=== PATIENT | female | born 1975 | race Caucasian/White ===

== ENCOUNTER 2020-08-27 16:56 | Inpatient (IN) | payer MEDICAID, OTHER ==
[~2020-08-27] VITALS: Ht 170.2 cm; Wt 61.4 kg
[2020-08-27] MEDS ORDERED: SODIUM CHLORIDE 0.9% 1,000 ML IV ONE ×3 (17:00→23:00)
[2020-08-27] MEDS ORDERED: NALOXONE HCL 0.4 MG/ML VIAL IV ONE (17:00)
[2020-08-27 19:05] LABS: Hemoglobin 12.6 g/dL (12.2-16.2); Mean Corpuscular Volume 104.8 fL (80.0-100.0)
[2020-08-27 19:06] LABS: Hematocrit 36.1 % (36.0-46.0); Mean Corpuscular Hemoglobin 36.5 pg (28.0-32.0); Mean Corpuscular Hgb Conc. 34.9 g/dL (32.0-36.0); Platelet Count (auto) 448 10^3/uL (140-450); Red Blood Cells 3.45 10^6/uL (4.0-5.20); Red Cell Distribution Width 15.7 % (11.8-14.3)
[2020-08-27 19:15] LABS: White Blood Cell 35.2 10^3/uL (4.4-10.8)
[2020-08-27 19:16] LABS: Basophils % (manual) 0 (0.0-2.0); Blast Cells 0; Eosinophils % (manual) 0 (0-7); Metamyelocytes % 0; Promyelocytes % 0; Reactive Lymphocytes 0
[2020-08-27 19:22] LABS: Albumin 3.8 g/dL (3.4-5.0); Anion Gap 25 (5-15); Calcium 11.5 mg/dL (8.5-10.1); Carbon Dioxide 11 mmol/L (21-32); Chloride 120 mmol/L (98-107); Glucose 175 mg/dL (74-106); Magnesium 3.8 mg/dL (1.6-2.6); Sodium 156 mmol/L (136-145)
[2020-08-27 19:24] LABS: Alanine Aminotransferase 45 U/L (13-56); Aspartate Aminotransferase 85 U/L (15-37); BUN/Creatinine Ratio 18.1; Blood Alcohol < 3.0 mg/dL (0-5); GFR African American 7 mL/min; GFR Non-African American 6 mL/min; Salicylate 4.7 mg/dL (2.8-20.0)
[2020-08-27 19:26] LABS: Acetaminophen < 2.0 ug/mL (10-30)
[2020-08-27 19:29] LABS: Alkaline Phosphatase 158 U/L (45-117); Bilirubin, Total 1.8 mg/dL (0.2-1.0); Creatine Kinase IFCC 238 U/L (26-192); Total Protein 9.4 g/dL (6.4-8.2)
[2020-08-27 19:29] LABS: Lactic Acid w/Reflex 2.8 mmol/L (0.4-2.0)
[2020-08-27] MEDS ORDERED: PIPERACILLIN-TAZOB 3.375GM 100 ML IV ONE (19:30)
[2020-08-27] MEDS ORDERED: VANCOMYCIN PER PHARMACY 0 MG IV SCH ×2 (19:30→21:15)
[2020-08-27 19:31] LABS: INR 1.14 (0.9-1.15); Partial Thromboplastin Time 22.1 sec (23.0-31.2)
[2020-08-27 19:33] LABS: Blood Urea Nitrogen 143 mg/dL (7-18)
[2020-08-27 19:40] LABS: Band Neutrophils % (manual) 20; Lymphocytes % (manual) 2 (10.0-50.0); Monocytes % (manual) 2 (0-12); Myelocytes % 1
[2020-08-27] MEDS ORDERED: POTASSIUM CHL 20MEQ/100ML 100 ML IV ONE ×2 (19:45→21:15)
[2020-08-27] MEDS ORDERED: VANCOMYCIN 1GM/250ML 250 ML IV ONE (20:00)
[2020-08-27 20:06] LABS: Urine Bacteria FEW /hpf (None Seen); Urine Blood 2+ /uL (Negative); Urine Hyaline Cast MOD /lpf (0 - 2); Urine Mucus FEW (None Seen); Urine Specific Gravity 1.024 (1.001-1.035); Urine WBC 154 /hpf (0 - 5)
[2020-08-27 20:29] LABS: Amphetamine Screen, Urine NEGATIVE (NEGATIVE); Barbiturate Scree,Urine NEGATIVE (NEGATIVE); Benzodiazephine Screen, Urine NEGATIVE (NEGATIVE); Cocaine Screen, Urine NEGATIVE (NEGATIVE); Opiate Scree,Urine NEGATIVE (NEGATIVE); Phencyclidine Screen, Urine NEGATIVE (NEGATIVE)
[2020-08-27 20:59] LABS: Cannabinoid Screen, Urine NEGATIVE (NEGATIVE)
[2020-08-27] MEDS ORDERED: SODIUM BICARBONATE 8.4 % INJ 50ML VIAL IV ONE (21:15)
[2020-08-27] MEDS ORDERED: LACTATED RINGER'S 1,000 ML IV ONE (21:15)
[2020-08-27] MEDS ORDERED: MORPHINE SULF INJ 2 MG/ML SYRINGE 1ML IV PRN (21:15)
[2020-08-27] MEDS ORDERED: ONDANSETRON HCL 4 MG/2 ML VIAL IV PRN (21:15)
[2020-08-27] MEDS ORDERED: SOD CHL 0.45% 1,000 ML IV SCH (21:15)
[2020-08-27] MEDS ORDERED: NITROGLYCERIN 0.4 MG SL TAB SL PRN (21:15)
[2020-08-27] MEDS ORDERED: PIPERACILLIN-TAZOB 2.25GM 50 ML IV SCH (22:00)
[2020-08-27] MEDS ORDERED: SODIUM BICARBONATE 8.4% INJ 50ML SYRINGE ONE (22:12)
[2020-08-28] VITALS (35 sets, daily range): BP systolic 79–117; BP diastolic 48–72
[2020-08-28] MEDS: LACTULOSE 20Gm/30ML SOLN PO SCH ×3 (01:00→23:36)
[2020-08-28] MEDS ORDERED: PIPERACILLIN-TAZOB 2.25GM 50 ML IV SCH (06:00)
[2020-08-28 08:23] LABS: Albumin 2.6 g/dL (3.4-5.0); BUN/Creatinine Ratio 21.2; Calcium 8.6 mg/dL (8.5-10.1)
[2020-08-28 08:26] LABS: Total Protein 6.6 g/dL (6.4-8.2)
[2020-08-28 08:29] LABS: Potassium 2.4 mmol/L (3.5-5.1)
[2020-08-28] MEDS ORDERED: SODIUM BICARBONATE 8.4 % INJ 50ML VIAL IV ONE (08:30)
[2020-08-28] MEDS ORDERED: SODIUM BICARBONATE 50ML VIAL 50 ML in SOD CHL 0.45% 1,000 ML IV SCH (08:30)
[2020-08-28 09:07] LABS: Platelet Count (auto) 273 10^3/uL (140-450)
[2020-08-28 09:10] LABS: Hematocrit 27.1 % (36.0-46.0); Hemoglobin 9.1 g/dL (12.2-16.2); Mean Corpuscular Hemoglobin 36.3 pg (28.0-32.0); Mean Corpuscular Hgb Conc. 33.6 g/dL (32.0-36.0); Red Blood Cells 2.51 10^6/uL (4.0-5.20); White Blood Cell 28.2 10^3/uL (4.4-10.8)
[2020-08-28 09:11] LABS: Phosphorus 3.5 mg/dL (2.5-4.90); Uric Acid 23.9 mg/dL (2.6-6.0)
[2020-08-28] MEDS ORDERED: NOREPINEPHRINE 8 MG/250ML KIT 250 ML IV ONE (09:11)
[2020-08-28 09:14] LABS: Basophils % (manual) 0 (0.0-2.0); Blast Cells 0; Eosinophils % (manual) 0 (0-7); Lymphocytes % (manual) 0 (10.0-50.0); Metamyelocytes % 0; Promyelocytes % 0; Reactive Lymphocytes 0
[2020-08-28] MEDS: NOREPINEPHRINE 8 MG/250ML KIT 250 ML IV SCH (09:20)
[2020-08-28 10:33] LABS: Band Neutrophils % (manual) 6; Monocytes % (manual) 2 (0-12); Myelocytes % 2
[2020-08-28] MEDS: LINEZOLID 600MG/300ML 300 ML IV SCH ×2 (10:40→22:48)
[2020-08-28] MEDS: PANTOPRAZOLE 40 MG/10 ML VIAL INJ IV SCH (10:40)
[2020-08-28] MEDS ORDERED: SODIUM CHL 0.9% 1000 ML BAG XX ONE (11:15)
[2020-08-28] MEDS: POTASSIUM CHL 20MEQ/100ML 100 ML IV SCH ×2 (12:00→13:15)
[2020-08-28] MEDS ORDERED: MEROPENEM 500MG IVPB 50 ML IV SCH (12:00)
[2020-08-28] MEDS ORDERED: FOLIC ACID 1 MG, MULTIPLE VITAMIN 10 ML, MAGNESIUM SULF SDV 50% 8 MEQ, THIAMINE INJ 100... INJ SCH ×5 (12:00)
[2020-08-28] MEDS ORDERED: THIAMINE 100mg/ml INJ (200mg/2ml VIAL) IV ONE (12:30)
[2020-08-28] MEDS ORDERED: ALBUMIN 25% 100 ML IV ONE (16:15)
[2020-08-28 22:54] LABS: BUN/Creatinine Ratio 16.2; Calcium 7.9 mg/dL (8.5-10.1)
[2020-08-28 22:58] LABS: Potassium 2.3 mmol/L (3.5-5.1)
[2020-08-29] VITALS (94 sets, daily range): BP systolic 82–120; BP diastolic 36–77
[2020-08-29] MEDS: POTASSIUM CHL 20MEQ/100ML 100 ML IV SCH ×7 (00:41→22:07)
[2020-08-29] MEDS: chlordiazePOXIDE HCL 25 MG CAP PO PRN ×3 (00:41→17:05)
[2020-08-29] MEDS: NOREPINEPHRINE 8 MG/250ML KIT 250 ML IV SCH ×2 (03:40→17:03)
[2020-08-29 04:49] LABS: Protein, Urine 214.9 mg/dL (0.0-11.9)
[2020-08-29 07:19] LABS: Hemoglobin 8.3 g/dL (12.2-16.2); Platelet Count (auto) 192 10^3/uL (140-450); White Blood Cell 25.6 10^3/uL (4.4-10.8)
[2020-08-29 07:22] LABS: Mean Corpuscular Hemoglobin 36.7 pg (28.0-32.0); Mean Corpuscular Hgb Conc. 34.6 g/dL (32.0-36.0); Mean Corpuscular Volume 106.2 fL (80.0-100.0); Red Blood Cells 2.26 10^6/uL (4.0-5.20); Red Cell Distribution Width 15.8 % (11.8-14.3)
[2020-08-29 07:28] LABS: Basophils % (manual) 0 (0.0-2.0); Blast Cells 0; Metamyelocytes % 0; Monocytes % (manual) 0 (0-12); Myelocytes % 0; Promyelocytes % 0; Reactive Lymphocytes 0
[2020-08-29 07:48] LABS: Albumin 2.9 g/dL (3.4-5.0); BUN/Creatinine Ratio 20.8; Bilirubin, Total 2.6 mg/dL (0.2-1.0); Calcium 7.9 mg/dL (8.5-10.1); Magnesium 2.2 mg/dL (1.6-2.6); Total Protein 6.1 g/dL (6.4-8.2)
[2020-08-29 07:56] LABS: Band Neutrophils % (manual) 3; Eosinophils % (manual) 3 (0-7); Lymphocytes % (manual) 7 (10.0-50.0)
[2020-08-29 07:57] LABS: Phosphorus 0.8 mg/dL (2.5-4.90); Potassium 2.5 mmol/L (3.5-5.1)
[2020-08-29] MEDS ORDERED: POTASSIUM PHOSPHATE 44 MEQ in D5W 5% 250 ML IV ONE (08:30)
[2020-08-29] MEDS: THIAMINE 100mg/ml INJ (200mg/2ml VIAL) IV SCH (08:59)
[2020-08-29] MEDS: LACTULOSE 20Gm/30ML SOLN PO SCH ×2 (08:59→22:09)
[2020-08-29] MEDS: PANTOPRAZOLE 40 MG/10 ML VIAL INJ IV SCH (08:59)
[2020-08-29] MEDS: LINEZOLID 600MG/300ML 300 ML IV SCH ×2 (08:59→22:08)
[2020-08-29 12:13] LABS: BUN/Creatinine Ratio 22.3; Calcium 8.2 mg/dL (8.5-10.1)
[2020-08-29 12:16] LABS: Potassium 2.6 mmol/L (3.5-5.1)
[2020-08-29] MEDS: MAGNESIUM SULFATE 1GM/100ML 100 ML IV SCH ×2 (13:17→14:18)
[2020-08-29] MEDS: FOLIC ACID 1 MG, MULTIPLE VITAMIN 10 ML, MAGNESIUM SULF SDV 50% 8 MEQ, THIAMINE INJ 100... INJ SCH ×5 (15:06)
[2020-08-29] MEDS: MEROPENEM 1GM IVPB 100 ML IV SCH (15:44)
[2020-08-29] MEDS: VASOPRESSIN 50 UNITS in D5W 5% 247.5 ML IV SCH (16:15)
[2020-08-30] VITALS (94 sets, daily range): BP systolic 95–125; BP diastolic 43–87
[2020-08-30] MEDS: MEROPENEM 1GM IVPB 100 ML IV SCH ×3 (01:00→20:00)
[2020-08-30 01:18] LABS: % Iron Saturation 31.5 % (15-50)
[2020-08-30 01:25] LABS: Folate (Folic Acid) > 24.00 ng/mL (5.38-24)
[2020-08-30] MEDS: POTASSIUM CHL 20MEQ/100ML 100 ML IV SCH ×4 (02:30→17:49)
[2020-08-30 06:15] LABS: Hemoglobin 8.2 g/dL (12.2-16.2); Red Cell Distribution Width 15.8 % (11.8-14.3)
[2020-08-30 06:18] LABS: Hematocrit 23.5 % (36.0-46.0); Mean Corpuscular Hemoglobin 36.7 pg (28.0-32.0); Mean Corpuscular Hgb Conc. 34.8 g/dL (32.0-36.0); Mean Corpuscular Volume 105.3 fL (80.0-100.0); Platelet Count (auto) 134 10^3/uL (140-450); Red Blood Cells 2.23 10^6/uL (4.0-5.20); White Blood Cell 19.5 10^3/uL (4.4-10.8)
[2020-08-30 06:29] LABS: Basophils % (manual) 0 (0.0-2.0); Blast Cells 0; Metamyelocytes % 0; Myelocytes % 0; Promyelocytes % 0; Reactive Lymphocytes 0
[2020-08-30 06:33] LABS: Albumin 2.5 g/dL (3.4-5.0); Calcium 8.3 mg/dL (8.5-10.1); Potassium 3.2 mmol/L (3.5-5.1)
[2020-08-30 06:39] LABS: Bilirubin, Total 1.6 mg/dL (0.2-1.0); Total Protein 5.7 g/dL (6.4-8.2)
[2020-08-30 07:08] LABS: Free T4 (Free Thyroxine) 1.02 ng/dL (0.89-1.76)
[2020-08-30 07:09] LABS: Folate (Folic Acid) > 24.00 ng/mL (5.38-24)
[2020-08-30 07:34] LABS: Band Neutrophils % (manual) 2; Eosinophils % (manual) 5 (0-7); Lymphocytes % (manual) 8 (10.0-50.0); Monocytes % (manual) 2 (0-12)
[2020-08-30] MEDS ORDERED: POTASSIUM PHOSPHATE 44 MEQ in D5W 5% 250 ML IV ONE (09:00)
[2020-08-30 09:10] LABS: Magnesium 2.8 mg/dL (1.6-2.6); Phosphorus 1.9 mg/dL (2.5-4.90)
[2020-08-30] MEDS: LACTULOSE 20Gm/30ML SOLN PO SCH ×2 (09:58→22:01)
[2020-08-30] MEDS: PANTOPRAZOLE 40 MG/10 ML VIAL INJ IV SCH (09:58)
[2020-08-30] MEDS: THIAMINE 100mg/ml INJ (200mg/2ml VIAL) IV SCH (09:58)
[2020-08-30] MEDS: LINEZOLID 600MG/300ML 300 ML IV SCH ×2 (09:58→22:00)
[2020-08-30] MEDS: LORazepam 2MG/ML-1ML VIAL IV PRN ×4 (10:35→23:30)
[2020-08-30] MEDS: chlordiazePOXIDE HCL 25 MG CAP PO SCH ×2 (12:08→17:27)
[2020-08-30] MEDS: FOLIC ACID 1 MG, MULTIPLE VITAMIN 10 ML, MAGNESIUM SULF SDV 50% 8 MEQ, THIAMINE INJ 100... INJ SCH ×5 (12:08)
[2020-08-30 14:50] LABS: Hepatitis A Ab IgM Negative; Hepatitis B Core IgM Negative; Hepatitis B Surface Antigen Negative (Negative); Hepatitis C Antibody Negative (Negative)
[2020-08-30 15:10] LABS: Hepatitis A Ab IgM Negative; Hepatitis B Core IgM Negative; Hepatitis B Surface Antigen Negative (Negative); Hepatitis C Antibody Negative (Negative)
[2020-08-30] MEDS: VASOPRESSIN 50 UNITS in D5W 5% 247.5 ML IV SCH (15:35)
[2020-08-30] MEDS: FOLIC ACID 1 MG, MULTIPLE VITAMIN 10 ML, THIAMINE INJ 100 MG in D5W 5% 1,000 ML INJ SCH (16:26)
[2020-08-31] VITALS (95 sets, daily range): BP systolic 92–139; BP diastolic 42–95
[2020-08-31] MEDS: chlordiazePOXIDE HCL 25 MG CAP PO SCH ×5 (00:08→23:57)
[2020-08-31] MEDS: NOREPINEPHRINE 8 MG/250ML KIT 250 ML IV SCH (00:10)
[2020-08-31] MEDS: MEROPENEM 1GM IVPB 100 ML IV SCH ×3 (04:00→20:00)
[2020-08-31] MEDS: LORazepam 2MG/ML-1ML VIAL IV PRN ×3 (04:30→20:30)
[2020-08-31 05:46] LABS: Potassium 3.4 mmol/L (3.5-5.1)
[2020-08-31 05:53] LABS: Albumin 2.3 g/dL (3.4-5.0); Total Protein 5.7 g/dL (6.4-8.2)
[2020-08-31] MEDS ORDERED: POTASSIUM PHOSPHATE 44 MEQ in D5W 5% 250 ML IV ONE (08:45)
[2020-08-31] MEDS: LINEZOLID 600MG/300ML 300 ML IV SCH ×2 (09:58→22:00)
[2020-08-31] MEDS: THIAMINE 100mg/ml INJ (200mg/2ml VIAL) IV SCH (09:58)
[2020-08-31] MEDS: PANTOPRAZOLE 40 MG/10 ML VIAL INJ IV SCH (09:58)
[2020-08-31] MEDS: LACTULOSE 20Gm/30ML SOLN PO SCH ×2 (09:59→21:51)
[2020-08-31] MEDS: FOLIC ACID 1 MG, MULTIPLE VITAMIN 10 ML, THIAMINE INJ 100 MG in D5W 5% 1,000 ML INJ SCH (12:00)
[2020-08-31] MEDS: VASOPRESSIN 50 UNITS in D5W 5% 247.5 ML IV SCH (16:15)
[2020-08-31] MEDS ORDERED: PPN PER PHARMACY 0 ML IV SCH (18:15)
[2020-08-31] MEDS ORDERED: CLINIMIX PER PHARMACY 0 ML IV SCH (18:15)
[2020-08-31] MEDS ORDERED: AMINO ACID INFUSION IN D10W 1,000 ML IV NR (20:00)
[2020-08-31] MEDS: ESOMEPRAZOLE 40 MG/5ml VIAL INJ IV SCH (21:50)
[2020-08-31] MEDS: ACCU-CHEK COMFORT CURVE STRIP VI SCH (23:57)
[2020-08-31] MEDS: InsuLIN REG 1unit/0.01ml Soln (100units/ml) SC SCH (23:58)
[2020-09-01] VITALS (88 sets, daily range): BP systolic 91–136; BP diastolic 53–95
[2020-09-01] MEDS ORDERED: DEXTROSE (50%) 50ML SYRG IV SCH
[2020-09-01] MEDS: MEROPENEM 1GM IVPB 100 ML IV SCH ×3 (04:00→20:09)
[2020-09-01 04:24] LABS: Basophils # (auto) 0 10 ^3/uL (0-0.2); Basophils % (auto) 0.4 % (0.0-2.0); Eosinophils # (auto) 0.4 10 ^3/uL (0-0.8); Hematocrit 26.4 % (36.0-46.0); Hemoglobin 9.1 g/dL (12.2-16.2); Lymphocytes % (auto) 9.3 % (10.0-50.0); Mean Corpuscular Hemoglobin 36.5 pg (28.0-32.0); Mean Corpuscular Hgb Conc. 34.3 g/dL (32.0-36.0); Mean Corpuscular Volume 106.5 fL (80.0-100.0); Monocytes # (auto) 0.6 10 ^3/uL (0-1.3); Monocytes % (auto) 5.5 % (0.0-12.0); Neutrophils # (auto) 8.8 10 ^3/uL (1.6-8.6); Neutrophils % (auto) 80.8 % (37.0-80.0); Nucleated Red Blood Cells % 0.1 %; Platelet Count (auto) 110 10^3/uL (140-450); Red Blood Cells 2.48 10^6/uL (4.0-5.20); White Blood Cell 10.9 10^3/uL (4.4-10.8)
[2020-09-01 04:55] LABS: Albumin 2.3 g/dL (3.4-5.0); Calcium 7.4 mg/dL (8.5-10.1); Magnesium 1.5 mg/dL (1.6-2.6)
[2020-09-01 04:57] LABS: BUN/Creatinine Ratio 27.6
[2020-09-01 05:00] LABS: Bilirubin, Total 0.9 mg/dL (0.2-1.0); Phosphorus 2.8 mg/dL (2.5-4.90); Total Protein 5.8 g/dL (6.4-8.2)
[2020-09-01 05:10] LABS: Potassium 2.9 mmol/L (3.5-5.1)
[2020-09-01] MEDS: LORazepam 2MG/ML-1ML VIAL IV PRN ×4 (05:30→16:38)
[2020-09-01] MEDS: ACCU-CHEK COMFORT CURVE STRIP VI SCH ×3 (05:47→18:25)
[2020-09-01] MEDS: chlordiazePOXIDE HCL 25 MG CAP PO SCH ×3 (05:47→18:39)
[2020-09-01] MEDS: POTASSIUM CHL 20MEQ/100ML 100 ML IV SCH ×3 (05:48→09:01)
[2020-09-01] MEDS: InsuLIN REG 1unit/0.01ml Soln (100units/ml) SC SCH ×3 (05:54→18:39)
[2020-09-01] MEDS: NOREPINEPHRINE 8 MG/250ML KIT 250 ML IV SCH ×2 (09:45→15:07)
[2020-09-01] MEDS: THIAMINE 100mg/ml INJ (200mg/2ml VIAL) IV SCH (10:08)
[2020-09-01] MEDS: LINEZOLID 600MG/300ML 300 ML IV SCH ×2 (10:09→22:06)
[2020-09-01] MEDS: LACTULOSE 20Gm/30ML SOLN PO SCH ×2 (10:09→22:06)
[2020-09-01] MEDS: ESOMEPRAZOLE 40 MG/5ml VIAL INJ IV SCH ×2 (10:09→22:07)
[2020-09-01] MEDS: FOLIC ACID 1 MG, MULTIPLE VITAMIN 10 ML, THIAMINE INJ 100 MG in D5W 5% 1,000 ML INJ SCH (12:00)
[2020-09-01] MEDS: MAGNESIUM SULFATE 1GM/100ML 100 ML IV SCH ×2 (12:15→15:20)
[2020-09-01] MEDS: ACETYLCYSTEINE 10 %(100MG/ML) SOL 4ML NEB SCH ×3 (14:00→22:24)
[2020-09-01] MEDS: LEVALBUTEROL HCL 1.25 MG/3 ML NEB NEB PRN ×3 (14:00→22:23)
[2020-09-01] MEDS ORDERED: POTASSIUM PHOSPHATE 44 MEQ in D5W 5% 250 ML IV ONE (14:00)
[2020-09-01] MEDS ORDERED: IOHEXOL 350 MG/ML 100ML IJ ONE (14:26)
[2020-09-01] MEDS: VASOPRESSIN 50 UNITS in D5W 5% 247.5 ML IV SCH (15:51)
[2020-09-01] MEDS ORDERED: ENOXAPARIN SOD 60 MG/0.6 ML SYRINGE SC ONE ×2 (16:15→16:45)
[2020-09-01] MEDS ORDERED: ENOXAPARIN SOD 60 MG/0.6 ML SYRINGE SC SCH (16:25)
[2020-09-01] MEDS ORDERED: MAGNESIUM SULFATE 1GM/100ML 100 ML IV ONE (18:00)
[2020-09-01] MEDS: AMINO ACID INFUSION IN D10W 1,000 ML IV NR (20:00)
[2020-09-01] MEDS: ENOXAPARIN SOD 60 MG/0.6 ML SYRINGE SC SCH (22:06)
[2020-09-02] VITALS (73 sets, daily range): BP systolic 80–129; BP diastolic 46–83
[2020-09-02] MEDS: LORazepam 2MG/ML-1ML VIAL IV PRN ×2 (00:06→11:36)
[2020-09-02] MEDS: LEVALBUTEROL HCL 1.25 MG/3 ML NEB NEB PRN ×5 (02:52→22:26)
[2020-09-02] MEDS: ACETYLCYSTEINE 10 %(100MG/ML) SOL 4ML NEB SCH ×6 (02:52→22:26)
[2020-09-02] MEDS: MEROPENEM 1GM IVPB 100 ML IV SCH ×3 (04:00→20:26)
[2020-09-02] MEDS: chlordiazePOXIDE HCL 25 MG CAP PO SCH ×5 (06:00→23:35)
[2020-09-02] MEDS: ACCU-CHEK COMFORT CURVE STRIP VI SCH ×5 (06:00→23:11)
[2020-09-02] MEDS: InsuLIN REG 1unit/0.01ml Soln (100units/ml) SC SCH ×5 (06:00→23:11)
[2020-09-02 06:24] LABS: Eosinophils # (auto) 0.2 10 ^3/uL (0-0.8); Monocytes # (auto) 0.5 10 ^3/uL (0-1.3); Nucleated Red Blood Cells % 0.1 %; White Blood Cell 17.6 10^3/uL (4.4-10.8)
[2020-09-02 06:26] LABS: Basophils # (auto) 0.1 10 ^3/uL (0-0.2); Basophils % (auto) 0.3 % (0.0-2.0); Eosinophils % (auto) 1.2 % (0.0-7.0); Hematocrit 24.8 % (36.0-46.0); Hemoglobin 8.5 g/dL (12.2-16.2); Lymphocytes # (auto) 0.5 10 ^3/uL (0.4-5.4); Lymphocytes % (auto) 3.1 % (10.0-50.0); Mean Corpuscular Hemoglobin 36.6 pg (28.0-32.0); Mean Corpuscular Hgb Conc. 34.2 g/dL (32.0-36.0); Monocytes % (auto) 3.1 % (0.0-12.0); Neutrophils # (auto) 16.3 10 ^3/uL (1.6-8.6); Neutrophils % (auto) 92.3 % (37.0-80.0); Platelet Count (auto) 101 10^3/uL (140-450); Red Blood Cells 2.31 10^6/uL (4.0-5.20); Red Cell Distribution Width 15.9 % (11.8-14.3)
[2020-09-02 06:46] LABS: Albumin 2.1 g/dL (3.4-5.0); Calcium 7.8 mg/dL (8.5-10.1); Magnesium 1.5 mg/dL (1.6-2.6); Potassium 3.4 mmol/L (3.5-5.1)
[2020-09-02 06:49] LABS: Bilirubin, Total 0.7 mg/dL (0.2-1.0); Phosphorus 2.1 mg/dL (2.5-4.90); Total Protein 5.5 g/dL (6.4-8.2)
[2020-09-02] MEDS: ESOMEPRAZOLE 40 MG/5ml VIAL INJ IV SCH ×2 (10:26→22:13)
[2020-09-02] MEDS: THIAMINE 100mg/ml INJ (200mg/2ml VIAL) IV SCH (10:26)
[2020-09-02] MEDS: ENOXAPARIN SOD 60 MG/0.6 ML SYRINGE SC SCH ×2 (10:26→22:14)
[2020-09-02] MEDS: LACTULOSE 20Gm/30ML SOLN PO SCH ×2 (10:26→22:14)
[2020-09-02] MEDS: LINEZOLID 600MG/300ML 300 ML IV SCH ×2 (10:26→22:14)
[2020-09-02] MEDS: MAGNESIUM SULFATE 1GM/100ML 100 ML IV SCH ×2 (10:42→11:36)
[2020-09-02] MEDS ORDERED: ROCURONIUM 10MG/ML 10ML VIAL IV ONE (11:56)
[2020-09-02] MEDS ORDERED: ETOMIDATE (2MG/ML) 20ML VIAL IV ONE (11:56)
[2020-09-02] MEDS ORDERED: fentaNYL Drip 2500mCg/250mlNS 250 ML IV ONE (12:10)
[2020-09-02] MEDS ORDERED: MIDAZOLAM DRIP 50 mg/50mL 50 ML IV ONE (12:11)
[2020-09-02] MEDS: MIDAZOLAM DRIP 50 mg/50mL 50 ML IV SCH (12:30)
[2020-09-02] MEDS: fentaNYL Drip 2500mCg/250mlNS 250 ML IV SCH (12:30)
[2020-09-02] MEDS ORDERED: POTASSIUM PHOSPHATE 44 MEQ in D5W 5% 250 ML IV ONE (13:00)
[2020-09-02] MEDS: PHENYLEPHRINE IV 250 ML IV SCH ×2 (13:50→19:55)
[2020-09-02] MEDS: FOLIC ACID 1 MG, MULTIPLE VITAMIN 10 ML, THIAMINE INJ 100 MG in D5W 5% 1,000 ML INJ SCH (14:40)
[2020-09-02] MEDS: VASOPRESSIN 50 UNITS in D5W 5% 247.5 ML IV SCH (16:15)
[2020-09-02] MEDS: AMINO ACID INFUSION IN D10W 1,000 ML IV NR (19:49)
[2020-09-02] MEDS ORDERED: AMINO ACID INFUSION IN D10W 2,000 ML IV NR (20:00)
[2020-09-03] VITALS (96 sets, daily range): BP systolic 61–203; BP diastolic 28–138
[2020-09-03] MEDS: LEVALBUTEROL HCL 1.25 MG/3 ML NEB NEB PRN ×6 (02:15→22:33)
[2020-09-03] MEDS: ACETYLCYSTEINE 10 %(100MG/ML) SOL 4ML NEB SCH ×6 (02:15→22:33)
[2020-09-03] MEDS: MEROPENEM 1GM IVPB 100 ML IV SCH ×3 (04:16→21:38)
[2020-09-03] MEDS: PHENYLEPHRINE IV 250 ML IV SCH (04:27)
[2020-09-03 04:32] LABS: Eosinophils # (auto) 0.2 10 ^3/uL (0-0.8); Hemoglobin 8.2 g/dL (12.2-16.2); Lymphocytes # (auto) 1.1 10 ^3/uL (0.4-5.4); Monocytes # (auto) 0.6 10 ^3/uL (0-1.3); Red Cell Distribution Width 16.2 % (11.8-14.3)
[2020-09-03 04:34] LABS: Basophils # (auto) 0.1 10 ^3/uL (0-0.2); Basophils % (auto) 0.4 % (0.0-2.0); Eosinophils % (auto) 1.1 % (0.0-7.0); Hematocrit 24.9 % (36.0-46.0); Lymphocytes % (auto) 6.2 % (10.0-50.0); Mean Corpuscular Hemoglobin 35.8 pg (28.0-32.0); Mean Corpuscular Hgb Conc. 32.9 g/dL (32.0-36.0); Mean Corpuscular Volume 108.8 fL (80.0-100.0); Monocytes % (auto) 3.3 % (0.0-12.0); Neutrophils # (auto) 15.9 10 ^3/uL (1.6-8.6); Platelet Count (auto) 128 10^3/uL (140-450); Red Blood Cells 2.29 10^6/uL (4.0-5.20); White Blood Cell 17.9 10^3/uL (4.4-10.8)
[2020-09-03] MEDS: MIDAZOLAM DRIP 50 mg/50mL 50 ML IV SCH ×2 (04:36→17:43)
[2020-09-03 04:52] LABS: Albumin 1.8 g/dL (3.4-5.0); Calcium 7.5 mg/dL (8.5-10.1); Magnesium 1.5 mg/dL (1.6-2.6); Potassium 3.4 mmol/L (3.5-5.1)
[2020-09-03 04:57] LABS: Bilirubin, Total 0.7 mg/dL (0.2-1.0); Phosphorus 2.6 mg/dL (2.5-4.90); Total Protein 5.4 g/dL (6.4-8.2)
[2020-09-03] MEDS: ACCU-CHEK COMFORT CURVE STRIP VI SCH ×3 (05:37→17:42)
[2020-09-03] MEDS: InsuLIN REG 1unit/0.01ml Soln (100units/ml) SC SCH ×3 (05:37→17:42)
[2020-09-03] MEDS: chlordiazePOXIDE HCL 25 MG CAP PO SCH ×4 (06:19→23:44)
[2020-09-03] MEDS: PHENYLEPHRINE INJ 40 MG in SODIUM CHL 0.9% 246 ML IV SCH ×3 (09:51→17:43)
[2020-09-03] MEDS ORDERED: NOREPINEPHRINE 8 MG/250ML KIT 250 ML IV ONE (10:26)
[2020-09-03] MEDS: NOREPINEPHRINE 8 MG/250ML KIT 250 ML IV SCH (10:30)
[2020-09-03] MEDS: ESOMEPRAZOLE 40 MG/5ml VIAL INJ IV SCH ×2 (10:30→22:32)
[2020-09-03] MEDS: THIAMINE 100mg/ml INJ (200mg/2ml VIAL) IV SCH (10:31)
[2020-09-03] MEDS: ENOXAPARIN SOD 60 MG/0.6 ML SYRINGE SC SCH ×2 (10:31→22:33)
[2020-09-03] MEDS: LACTULOSE 20Gm/30ML SOLN PO SCH ×2 (10:31→22:32)
[2020-09-03] MEDS: LINEZOLID 600MG/300ML 300 ML IV SCH ×2 (10:45→22:33)
[2020-09-03] MEDS: MAGNESIUM SULFATE 1GM/100ML 100 ML IV SCH ×2 (11:47→12:59)
[2020-09-03] MEDS: fentaNYL Drip 2500mCg/250mlNS 250 ML IV SCH (12:15)
[2020-09-03] MEDS ORDERED: POTASSIUM PHOSPHATE 44 MEQ in D5W 5% 250 ML IV ONE (13:00)
[2020-09-03] MEDS: FOLIC ACID 1 MG, MULTIPLE VITAMIN 10 ML, THIAMINE INJ 100 MG in D5W 5% 1,000 ML INJ SCH (14:45)
[2020-09-03] MEDS: VASOPRESSIN 50 UNITS in D5W 5% 247.5 ML IV SCH (16:15)
[2020-09-03] MEDS ORDERED: PHENYLEPHRINE HCL 10 MG/ML VL ONE (17:36)
[2020-09-03] MEDS ORDERED: PHENYLEPHRINE IV 250 ML IV ONE (17:36)
[2020-09-03] MEDS ORDERED: AMINO ACID INFUSION IN D10W 1,000 ML IV NR (20:00)
[2020-09-04] VITALS (105 sets, daily range): BP systolic 82–113; BP diastolic 48–76
[2020-09-04] MEDS: ACCU-CHEK COMFORT CURVE STRIP VI SCH ×4 (00:32→18:43)
[2020-09-04] MEDS: fentaNYL Drip 2500mCg/250mlNS 250 ML IV SCH (01:12)
[2020-09-04] MEDS: PHENYLEPHRINE INJ 40 MG in SODIUM CHL 0.9% 246 ML IV SCH ×3 (02:50→18:45)
[2020-09-04] MEDS: MEROPENEM 1GM IVPB 100 ML IV SCH ×3 (04:11→20:06)
[2020-09-04] MEDS: LEVALBUTEROL HCL 1.25 MG/3 ML NEB NEB PRN ×3 (05:47→22:41)
[2020-09-04] MEDS: ACETYLCYSTEINE 10 %(100MG/ML) SOL 4ML NEB SCH ×6 (05:48→22:41)
[2020-09-04] MEDS: InsuLIN REG 1unit/0.01ml Soln (100units/ml) SC SCH ×4 (06:00→18:00)
[2020-09-04] MEDS: MIDAZOLAM DRIP 50 mg/50mL 50 ML IV SCH ×2 (06:01→18:45)
[2020-09-04] MEDS: chlordiazePOXIDE HCL 25 MG CAP PO SCH ×3 (06:27→18:33)
[2020-09-04 07:29] LABS: Basophils # (auto) 0.1 10 ^3/uL (0-0.2); Lymphocytes # (auto) 1.4 10 ^3/uL (0.4-5.4); Mean Corpuscular Hemoglobin 35.9 pg (28.0-32.0); Monocytes # (auto) 0.5 10 ^3/uL (0-1.3); Neutrophils % (auto) 76.6 % (37.0-80.0); Red Blood Cells 2.49 10^6/uL (4.0-5.20)
[2020-09-04 07:31] LABS: Basophils % (auto) 0.8 % (0.0-2.0); Eosinophils # (auto) 0.4 10 ^3/uL (0-0.8); Eosinophils % (auto) 3.7 % (0.0-7.0); Hematocrit 27.1 % (36.0-46.0); Hemoglobin 8.9 g/dL (12.2-16.2); Lymphocytes % (auto) 13.9 % (10.0-50.0); Mean Corpuscular Hgb Conc. 32.9 g/dL (32.0-36.0); Mean Corpuscular Volume 108.9 fL (80.0-100.0); Neutrophils # (auto) 7.4 10 ^3/uL (1.6-8.6); Platelet Count (auto) 168 10^3/uL (140-450); Red Cell Distribution Width 16.2 % (11.8-14.3); White Blood Cell 9.7 10^3/uL (4.4-10.8)
[2020-09-04 07:45] LABS: Albumin 1.7 g/dL (3.4-5.0); Calcium 7.8 mg/dL (8.5-10.1); Magnesium 1.5 mg/dL (1.6-2.6)
[2020-09-04 07:52] LABS: BUN/Creatinine Ratio 28.6; Bilirubin, Total 0.6 mg/dL (0.2-1.0); Phosphorus 2.7 mg/dL (2.5-4.90); Pre Albumin 6.3 mg/dL (20.0-40.0); Total Protein 5.5 g/dL (6.4-8.2)
[2020-09-04] MEDS ORDERED: PHENYLEPHRINE HCL 10 MG/ML VL ONE (10:09)
[2020-09-04] MEDS ORDERED: PHENYLEPHRINE IV 250 ML IV ONE (10:10)
[2020-09-04] MEDS: LINEZOLID 600MG/300ML 300 ML IV SCH ×2 (10:13→22:14)
[2020-09-04] MEDS: THIAMINE 100mg/ml INJ (200mg/2ml VIAL) IV SCH (10:16)
[2020-09-04] MEDS: ESOMEPRAZOLE 40 MG/5ml VIAL INJ IV SCH ×2 (10:16→22:14)
[2020-09-04] MEDS: MAGNESIUM SULFATE 1GM/100ML 100 ML IV SCH ×2 (10:17→11:53)
[2020-09-04] MEDS: ENOXAPARIN SOD 60 MG/0.6 ML SYRINGE SC SCH ×2 (10:17→22:14)
[2020-09-04] MEDS: LACTULOSE 20Gm/30ML SOLN PO SCH ×2 (10:17→22:14)
[2020-09-04] MEDS: NOREPINEPHRINE 8 MG/250ML KIT 250 ML IV SCH (10:25)
[2020-09-04] MEDS: FOLIC ACID 1 MG, MULTIPLE VITAMIN 10 ML, THIAMINE INJ 100 MG, MAGNESIUM SULF SDV 50% 8 ... INJ SCH ×5 (11:54)
[2020-09-04] MEDS: VASOPRESSIN 50 UNITS in D5W 5% 247.5 ML IV SCH (16:15)
[2020-09-04] MEDS ORDERED: AMINO ACID INFUSION IN D10W 1,000 ML IV NR (20:00)
[2020-09-05] VITALS (99 sets, daily range): BP systolic 84–118; BP diastolic 45–91
[2020-09-05] MEDS: chlordiazePOXIDE HCL 25 MG CAP PO SCH ×4 (00:19→18:17)
[2020-09-05] MEDS: ACCU-CHEK COMFORT CURVE STRIP VI SCH ×4 (00:20→18:17)
[2020-09-05] MEDS: InsuLIN REG 1unit/0.01ml Soln (100units/ml) SC SCH ×4 (00:20→18:00)
[2020-09-05] MEDS: PHENYLEPHRINE INJ 40 MG in SODIUM CHL 0.9% 246 ML IV SCH ×3 (00:48→15:42)
[2020-09-05] MEDS: MIDAZOLAM DRIP 50 mg/50mL 50 ML IV SCH ×4 (02:15→23:21)
[2020-09-05] MEDS: ACETYLCYSTEINE 10 %(100MG/ML) SOL 4ML NEB SCH ×6 (02:46→22:13)
[2020-09-05] MEDS: LEVALBUTEROL HCL 1.25 MG/3 ML NEB NEB PRN ×6 (02:46→22:13)
[2020-09-05] MEDS: MEROPENEM 1GM IVPB 100 ML IV SCH (04:02)
[2020-09-05 04:26] LABS: Eosinophils # (auto) 0.2 10 ^3/uL (0-0.8); Hemoglobin 7.7 g/dL (12.2-16.2); Lymphocytes # (auto) 1.4 10 ^3/uL (0.4-5.4); Monocytes # (auto) 0.5 10 ^3/uL (0-1.3); Red Cell Distribution Width 16.1 % (11.8-14.3)
[2020-09-05 04:28] LABS: Basophils # (auto) 0.1 10 ^3/uL (0-0.2); Basophils % (auto) 0.8 % (0.0-2.0); Eosinophils % (auto) 2.2 % (0.0-7.0); Hematocrit 22.8 % (36.0-46.0); Lymphocytes % (auto) 15.1 % (10.0-50.0); Mean Corpuscular Hemoglobin 36.8 pg (28.0-32.0); Mean Corpuscular Hgb Conc. 33.8 g/dL (32.0-36.0); Mean Corpuscular Volume 108.8 fL (80.0-100.0); Monocytes % (auto) 5.4 % (0.0-12.0); Neutrophils % (auto) 76.5 % (37.0-80.0); Platelet Count (auto) 169 10^3/uL (140-450); Red Blood Cells 2.09 10^6/uL (4.0-5.20); White Blood Cell 9.1 10^3/uL (4.4-10.8)
[2020-09-05 04:42] LABS: Potassium 3.2 mmol/L (3.5-5.1)
[2020-09-05 04:49] LABS: Albumin 1.6 g/dL (3.4-5.0); BUN/Creatinine Ratio 33.3; Bilirubin, Total 1.6 mg/dL (0.2-1.0); Calcium 8.2 mg/dL (8.5-10.1); Magnesium 1.6 mg/dL (1.6-2.6); Total Protein 5.3 g/dL (6.4-8.2)
[2020-09-05] MEDS: fentaNYL Drip 2500mCg/250mlNS 250 ML IV SCH (06:39)
[2020-09-05] MEDS ORDERED: POTASSIUM PHOSPHATE 44 MEQ in D5W 5% 250 ML IV ONE (09:00)
[2020-09-05] MEDS: THIAMINE 100mg/ml INJ (200mg/2ml VIAL) IV SCH (09:47)
[2020-09-05] MEDS: ESOMEPRAZOLE 40 MG/5ml VIAL INJ IV SCH ×2 (09:47→21:45)
[2020-09-05] MEDS: LACTULOSE 20Gm/30ML SOLN PO SCH ×2 (09:47→21:46)
[2020-09-05] MEDS: LINEZOLID 600MG/300ML 300 ML IV SCH (09:47)
[2020-09-05] MEDS: ENOXAPARIN SOD 60 MG/0.6 ML SYRINGE SC SCH ×2 (09:47→21:46)
[2020-09-05] MEDS: NOREPINEPHRINE 8 MG/250ML KIT 250 ML IV SCH (09:48)
[2020-09-05] MEDS ORDERED: POTASSIUM CHL 20MEQ/100ML 100 ML IV SCH (10:15)
[2020-09-05] MEDS ORDERED: ceFAZolin 1GM/50ML 50 ML IV ONE (10:15)
[2020-09-05] MEDS: FOLIC ACID 1 MG, MULTIPLE VITAMIN 10 ML, THIAMINE INJ 100 MG, MAGNESIUM SULF SDV 50% 8 ... INJ SCH ×5 (12:21)
[2020-09-05] MEDS: PHENYLEPHRINE INJ 80 MG in SODIUM CHL 0.9% 242 ML IV SCH ×2 (15:15→21:30)
[2020-09-05] MEDS: VASOPRESSIN 50 UNITS in D5W 5% 247.5 ML IV SCH (16:15)
[2020-09-05] MEDS: POTASSIUM CHL 20MEQ/100ML 100 ML IV SCH ×2 (18:17→20:43)
[2020-09-05] MEDS: ceFAZolin 1GM/50ML 50 ML IV SCH (18:30)
[2020-09-05] MEDS ORDERED: AMINO ACID INFUSION IN D10W 1,000 ML IV NR (20:00)
[2020-09-06] VITALS (105 sets, daily range): BP systolic 90–118; BP diastolic 43–76
[2020-09-06] MEDS: ACCU-CHEK COMFORT CURVE STRIP VI SCH ×4 (00:26→18:00)
[2020-09-06] MEDS: chlordiazePOXIDE HCL 25 MG CAP PO SCH ×4 (00:26→18:45)
[2020-09-06] MEDS: ACETYLCYSTEINE 10 %(100MG/ML) SOL 4ML NEB SCH ×6 (02:06→22:15)
[2020-09-06] MEDS: LEVALBUTEROL HCL 1.25 MG/3 ML NEB NEB PRN ×6 (02:06→22:15)
[2020-09-06] MEDS: ceFAZolin 1GM/50ML 50 ML IV SCH ×3 (04:02→19:01)
[2020-09-06 04:16] LABS: Basophils # (auto) 0.1 10 ^3/uL (0-0.2); Basophils % (auto) 1.1 % (0.0-2.0); Eosinophils # (auto) 0.2 10 ^3/uL (0-0.8); Monocytes # (auto) 0.3 10 ^3/uL (0-1.3); Neutrophils # (auto) 4.8 10 ^3/uL (1.6-8.6); Nucleated Red Blood Cells % 0.1 %; White Blood Cell 6.6 10^3/uL (4.4-10.8)
[2020-09-06 04:19] LABS: Hemoglobin 7.6 g/dL (12.2-16.2); Lymphocytes # (auto) 1.2 10 ^3/uL (0.4-5.4); Mean Corpuscular Hemoglobin 36.5 pg (28.0-32.0); Mean Corpuscular Hgb Conc. 33.1 g/dL (32.0-36.0); Mean Corpuscular Volume 110.1 fL (80.0-100.0); Monocytes % (auto) 4.7 % (0.0-12.0); Neutrophils % (auto) 73.2 % (37.0-80.0); Platelet Count (auto) 156 10^3/uL (140-450); Red Blood Cells 2.09 10^6/uL (4.0-5.20)
[2020-09-06 04:35] LABS: Calcium 8.3 mg/dL (8.5-10.1)
[2020-09-06 04:41] LABS: Albumin 1.6 g/dL (3.4-5.0); Bilirubin, Total 0.7 mg/dL (0.2-1.0); Magnesium 1.4 mg/dL (1.6-2.6); Phosphorus 2.3 mg/dL (2.5-4.90); Total Protein 5.6 g/dL (6.4-8.2)
[2020-09-06] MEDS: MIDAZOLAM DRIP 50 mg/50mL 50 ML IV SCH (04:45)
[2020-09-06] MEDS: InsuLIN REG 1unit/0.01ml Soln (100units/ml) SC SCH ×4 (05:47→18:00)
[2020-09-06] MEDS ORDERED: SODIUM PHOSPHATES IV ONE (09:00)
[2020-09-06] MEDS ORDERED: SODIUM CHL 0.9% IV ONE (09:00)
[2020-09-06] MEDS: LACTULOSE 20Gm/30ML SOLN PO SCH ×2 (09:07→22:12)
[2020-09-06] MEDS: MAGNESIUM SULFATE 1GM/100ML 100 ML IV SCH ×2 (09:07→11:03)
[2020-09-06] MEDS: ESOMEPRAZOLE 40 MG/5ml VIAL INJ IV SCH ×2 (09:07→22:12)
[2020-09-06] MEDS: THIAMINE 100mg/ml INJ (200mg/2ml VIAL) IV SCH (09:07)
[2020-09-06] MEDS: ENOXAPARIN SOD 60 MG/0.6 ML SYRINGE SC SCH ×2 (09:08→22:12)
[2020-09-06] MEDS: FOLIC ACID 1 MG, MULTIPLE VITAMIN 10 ML, THIAMINE INJ 100 MG, MAGNESIUM SULF SDV 50% 8 ... INJ SCH ×5 (12:07)
[2020-09-06] MEDS: fentaNYL Drip 2500mCg/250mlNS 250 ML IV SCH (18:44)
[2020-09-06] MEDS ORDERED: AMINO ACID INFUSION IN D10W 1,000 ML IV NR (20:00)
[2020-09-07] VITALS (103 sets, daily range): BP systolic 84–130; BP diastolic 46–91
[2020-09-07] MEDS: chlordiazePOXIDE HCL 25 MG CAP PO SCH ×5 (00:17→23:58)
[2020-09-07] MEDS: ACCU-CHEK COMFORT CURVE STRIP VI SCH ×5 (00:17→23:58)
[2020-09-07] MEDS: LEVALBUTEROL HCL 1.25 MG/3 ML NEB NEB PRN ×5 (02:28→22:11)
[2020-09-07] MEDS: ACETYLCYSTEINE 10 %(100MG/ML) SOL 4ML NEB SCH ×6 (02:28→22:11)
[2020-09-07] MEDS: ceFAZolin 1GM/50ML 50 ML IV SCH ×3 (03:00→19:34)
[2020-09-07] MEDS: InsuLIN REG 1unit/0.01ml Soln (100units/ml) SC SCH ×5 (05:54→23:59)
[2020-09-07 06:14] LABS: Basophils # (auto) 0.1 10 ^3/uL (0-0.2); Eosinophils # (auto) 0.2 10 ^3/uL (0-0.8); Lymphocytes % (auto) 17.1 % (10.0-50.0); Monocytes # (auto) 0.3 10 ^3/uL (0-1.3); Red Cell Distribution Width 15.7 % (11.8-14.3)
[2020-09-07 06:16] LABS: Basophils % (auto) 1.2 % (0.0-2.0); Eosinophils % (auto) 2.7 % (0.0-7.0); Hematocrit 20.6 % (36.0-46.0); Mean Corpuscular Hemoglobin 35.7 pg (28.0-32.0); Mean Corpuscular Volume 108.1 fL (80.0-100.0); Monocytes % (auto) 4.7 % (0.0-12.0); Neutrophils # (auto) 4.3 10 ^3/uL (1.6-8.6); Neutrophils % (auto) 74.3 % (37.0-80.0); Nucleated Red Blood Cells % 0.2 %; Platelet Count (auto) 143 10^3/uL (140-450); White Blood Cell 5.8 10^3/uL (4.4-10.8)
[2020-09-07 06:32] LABS: Albumin 1.5 g/dL (3.4-5.0); Anion Gap 8 (5-15); Blood Urea Nitrogen 5 mg/dL (7-18); Calcium 8.4 mg/dL (8.5-10.1); Carbon Dioxide 21 mmol/L (21-32); Chloride 116 mmol/L (98-107); Glucose 109 mg/dL (74-106); Magnesium 1.4 mg/dL (1.6-2.6); Sodium 145 mmol/L (136-145)
[2020-09-07 06:35] LABS: Alanine Aminotransferase 44 U/L (13-56); Alkaline Phosphatase 266 U/L (45-117); Aspartate Aminotransferase 108 U/L (15-37); Bilirubin, Total 0.5 mg/dL (0.2-1.0); Phosphorus 2.4 mg/dL (2.5-4.90)
[2020-09-07 06:52] LABS: Potassium 2.7 mmol/L (3.5-5.1)
[2020-09-07 06:58] LABS: BUN/Creatinine Ratio 33.3; GFR African American 692 mL/min
[2020-09-07 06:59] LABS: GFR Non-African American 572 mL/min
[2020-09-07 07:10] LABS: Hemoglobin 6.8 g/dL (12.2-16.2)
[2020-09-07] MEDS: POTASSIUM CHL 20MEQ/100ML 100 ML IV SCH ×4 (08:53→15:32)
[2020-09-07] MEDS: THIAMINE 100mg/ml INJ (200mg/2ml VIAL) IV SCH (09:26)
[2020-09-07] MEDS: ESOMEPRAZOLE 40 MG/5ml VIAL INJ IV SCH ×2 (09:26→22:00)
[2020-09-07] MEDS: ENOXAPARIN SOD 60 MG/0.6 ML SYRINGE SC SCH ×2 (09:27→22:00)
[2020-09-07] MEDS ORDERED: MAGNESIUM SULFATE 1GM/100ML 100 ML IV SCH (10:00)
[2020-09-07] MEDS ORDERED: Jevity 1.2 Cal/Fiber 1 Liter GT SCH (11:45)
[2020-09-07] MEDS: PHENYLEPHRINE INJ 80 MG in SODIUM CHL 0.9% 242 ML IV SCH (15:32)
[2020-09-07] MEDS: MAGNESIUM SULFATE 1GM/100ML 100 ML IV SCH ×3 (17:43→21:35)
[2020-09-07] MEDS ORDERED: SODIUM CHL 0.9% IV ONE (20:00)
[2020-09-07] MEDS ORDERED: AMINO ACID INFUSION IN D10W 1,000 ML IV NR (20:00)
[2020-09-07] MEDS ORDERED: SODIUM PHOSPHATES IV ONE (20:00)
[2020-09-07] MEDS ORDERED: MAGNESIUM SULFATE 1GM/100ML 100 ML IV ONE (21:38)
[2020-09-08] VITALS (104 sets, daily range): BP systolic 84–116; BP diastolic 40–76
[2020-09-08] MEDS: ACETYLCYSTEINE 10 %(100MG/ML) SOL 4ML NEB SCH ×5 (02:05→22:01)
[2020-09-08] MEDS: LEVALBUTEROL HCL 1.25 MG/3 ML NEB NEB PRN ×5 (02:06→22:01)
[2020-09-08] MEDS: ceFAZolin 1GM/50ML 50 ML IV SCH ×3 (03:00→18:09)
[2020-09-08 04:37] LABS: Basophils # (auto) 0.1 10 ^3/uL (0-0.2); Basophils % (auto) 0.9 % (0.0-2.0); Eosinophils # (auto) 0.1 10 ^3/uL (0-0.8); Hemoglobin 8.4 g/dL (12.2-16.2); Neutrophils # (auto) 6.1 10 ^3/uL (1.6-8.6); White Blood Cell 7.9 10^3/uL (4.4-10.8)
[2020-09-08 04:40] LABS: Eosinophils % (auto) 1.8 % (0.0-7.0); Hematocrit 24.7 % (36.0-46.0); Lymphocytes % (auto) 12.9 % (10.0-50.0); Mean Corpuscular Hemoglobin 34.5 pg (28.0-32.0); Mean Corpuscular Hgb Conc. 34.2 g/dL (32.0-36.0); Mean Corpuscular Volume 101.1 fL (80.0-100.0); Monocytes # (auto) 0.6 10 ^3/uL (0-1.3); Monocytes % (auto) 7.1 % (0.0-12.0); Neutrophils % (auto) 77.3 % (37.0-80.0); Nucleated Red Blood Cells % 0.1 %; Platelet Count (auto) 150 10^3/uL (140-450); Red Blood Cells 2.44 10^6/uL (4.0-5.20)
[2020-09-08 04:54] LABS: Chloride 115 mmol/L (98-107); Red Cell Distribution Width 20.4 % (11.8-14.3); Sodium 145 mmol/L (136-145)
[2020-09-08 05:04] LABS: Alanine Aminotransferase 49 U/L (13-56); Albumin 1.7 g/dL (3.4-5.0); Alkaline Phosphatase 265 U/L (45-117); Anion Gap 8 (5-15); Aspartate Aminotransferase 82 U/L (15-37); Bilirubin, Total 0.6 mg/dL (0.2-1.0); Blood Urea Nitrogen 5 mg/dL (7-18); Calcium 8.5 mg/dL (8.5-10.1); Carbon Dioxide 22 mmol/L (21-32); Glucose 115 mg/dL (74-106); Magnesium 1.6 mg/dL (1.6-2.6); Phosphorus 3.5 mg/dL (2.5-4.90); Total Protein 5.6 g/dL (6.4-8.2)
[2020-09-08 05:48] LABS: BUN/Creatinine Ratio 33.3; GFR African American 692 mL/min; GFR Non-African American 572 mL/min
[2020-09-08 05:49] LABS: Potassium 2.5 mmol/L (3.5-5.1)
[2020-09-08] MEDS: InsuLIN REG 1unit/0.01ml Soln (100units/ml) SC SCH ×3 (06:00→18:04)
[2020-09-08] MEDS: ACCU-CHEK COMFORT CURVE STRIP VI SCH ×3 (06:17→18:04)
[2020-09-08] MEDS: chlordiazePOXIDE HCL 25 MG CAP PO SCH ×3 (06:17→18:04)
[2020-09-08] MEDS: POTASSIUM CHL 20MEQ/100ML 100 ML IV SCH ×5 (06:36→21:29)
[2020-09-08] MEDS: NOREPINEPHRINE 8 MG/250ML KIT 250 ML IV SCH (07:37)
[2020-09-08] MEDS: VASOPRESSIN 50 UNITS in D5W 5% 247.5 ML IV SCH (07:37)
[2020-09-08] MEDS: MIDAZOLAM DRIP 50 mg/50mL 50 ML IV SCH (07:38)
[2020-09-08] MEDS: fentaNYL Drip 2500mCg/250mlNS 250 ML IV SCH (07:38)
[2020-09-08] MEDS: PHENYLEPHRINE INJ 80 MG in SODIUM CHL 0.9% 242 ML IV SCH (09:30)
[2020-09-08] MEDS: THIAMINE 100mg/ml INJ (200mg/2ml VIAL) IV SCH (10:08)
[2020-09-08] MEDS: ESOMEPRAZOLE 40 MG/5ml VIAL INJ IV SCH ×2 (10:09→21:50)
[2020-09-08] MEDS: ENOXAPARIN SOD 60 MG/0.6 ML SYRINGE SC SCH ×2 (10:09→21:50)
[2020-09-08] MEDS ORDERED: MAGNESIUM SULFATE 1GM/100ML 100 ML IV ONE (11:00)
[2020-09-08] MEDS ORDERED: CLINIMIX PER PHARMACY IV NR ×6 (20:00)
[2020-09-08 20:55] LABS: Magnesium 1.4 mg/dL (1.6-2.6); Potassium 3.1 mmol/L (3.5-5.1)
[2020-09-09] VITALS (105 sets, daily range): BP systolic 85–122; BP diastolic 45–80
[2020-09-09] MEDS: ACCU-CHEK COMFORT CURVE STRIP VI SCH ×4 (00:12→18:00)
[2020-09-09] MEDS: chlordiazePOXIDE HCL 25 MG CAP PO SCH ×4 (00:12→18:32)
[2020-09-09] MEDS: POTASSIUM CHL 20MEQ/100ML 100 ML IV SCH (01:28)
[2020-09-09] MEDS: LEVALBUTEROL HCL 1.25 MG/3 ML NEB NEB PRN ×5 (02:43→22:25)
[2020-09-09] MEDS: ACETYLCYSTEINE 10 %(100MG/ML) SOL 4ML NEB SCH ×6 (02:43→22:25)
[2020-09-09] MEDS: ceFAZolin 1GM/50ML 50 ML IV SCH ×3 (03:00→18:33)
[2020-09-09 03:56] LABS: Hematocrit 24.9 % (36.0-46.0); Hemoglobin 8.5 g/dL (12.2-16.2)
[2020-09-09 04:09] LABS: Chloride 116 mmol/L (98-107); Potassium 3.7 mmol/L (3.5-5.1); Sodium 143 mmol/L (136-145)
[2020-09-09 04:18] LABS: Alanine Aminotransferase 50 U/L (13-56); Albumin 1.9 g/dL (3.4-5.0); Alkaline Phosphatase 224 U/L (45-117); Anion Gap 6 (5-15); Aspartate Aminotransferase 74 U/L (15-37); BUN/Creatinine Ratio 33.3; Bilirubin, Total 0.5 mg/dL (0.2-1.0); Blood Urea Nitrogen 5 mg/dL (7-18); Calcium 8.5 mg/dL (8.5-10.1); Carbon Dioxide 21 mmol/L (21-32); GFR African American 692 mL/min; GFR Non-African American 572 mL/min; Glucose 126 mg/dL (74-106); Magnesium 1.8 mg/dL (1.6-2.6); Phosphorus 2.2 mg/dL (2.5-4.90); Total Protein 5.9 g/dL (6.4-8.2)
[2020-09-09] MEDS ORDERED: MAGNESIUM SULFATE 1GM/100ML 100 ML IV ONE ×2 (04:42→11:45)
[2020-09-09] MEDS: MAGNESIUM SULFATE 1GM/100ML 100 ML IV SCH ×2 (05:00)
[2020-09-09] MEDS: InsuLIN REG 1unit/0.01ml Soln (100units/ml) SC SCH ×4 (05:34→18:00)
[2020-09-09] MEDS: PHENYLEPHRINE INJ 80 MG in SODIUM CHL 0.9% 242 ML IV SCH (09:00)
[2020-09-09] MEDS ORDERED: POTASSIUM PHOSPHATE 26.4 MEQ in SODIUM CHL 0.9% 100 ML IV ONE (10:30)
[2020-09-09] MEDS: ESOMEPRAZOLE 40 MG/5ml VIAL INJ IV SCH ×2 (11:05→21:32)
[2020-09-09] MEDS: THIAMINE 100mg/ml INJ (200mg/2ml VIAL) IV SCH (11:05)
[2020-09-09] MEDS: ENOXAPARIN SOD 60 MG/0.6 ML SYRINGE SC SCH ×2 (11:06→21:32)
[2020-09-09] MEDS ORDERED: AMINO ACID INFUSION IN D10W 1,000 ML IV NR (20:00)
[2020-09-10] VITALS (103 sets, daily range): BP systolic 87–124; BP diastolic 43–86
[2020-09-10] MEDS: chlordiazePOXIDE HCL 25 MG CAP PO SCH ×3 (00:33→11:31)
[2020-09-10] MEDS: ACETYLCYSTEINE 10 %(100MG/ML) SOL 4ML NEB SCH ×6 (02:34→22:05)
[2020-09-10] MEDS: LEVALBUTEROL HCL 1.25 MG/3 ML NEB NEB PRN ×6 (02:34→22:05)
[2020-09-10] MEDS: ceFAZolin 1GM/50ML 50 ML IV SCH ×3 (02:47→18:28)
[2020-09-10 05:30] LABS: Albumin 1.9 g/dL (3.4-5.0); Calcium 8.7 mg/dL (8.5-10.1); Magnesium 1.9 mg/dL (1.6-2.6); Potassium 3.3 mmol/L (3.5-5.1)
[2020-09-10 05:34] LABS: BUN/Creatinine Ratio 35.3; Bilirubin, Total 0.4 mg/dL (0.2-1.0); Phosphorus 3.4 mg/dL (2.5-4.90); Total Protein 5.8 g/dL (6.4-8.2)
[2020-09-10] MEDS: InsuLIN REG 1unit/0.01ml Soln (100units/ml) SC SCH ×5 (06:00→23:53)
[2020-09-10] MEDS: ACCU-CHEK COMFORT CURVE STRIP VI SCH ×5 (06:08→23:53)
[2020-09-10] MEDS: ESOMEPRAZOLE 40 MG/5ml VIAL INJ IV SCH ×2 (09:46→22:18)
[2020-09-10] MEDS: THIAMINE 100mg/ml INJ (200mg/2ml VIAL) IV SCH (09:46)
[2020-09-10] MEDS: ENOXAPARIN SOD 60 MG/0.6 ML SYRINGE SC SCH ×2 (09:46→22:19)
[2020-09-10] MEDS: POTASSIUM CHL 20MEQ/100ML 100 ML IV SCH ×2 (09:55→12:13)
[2020-09-10] MEDS: PHENYLEPHRINE INJ 80 MG in SODIUM CHL 0.9% 242 ML IV SCH (09:56)
[2020-09-10] MEDS: MIDAZOLAM DRIP 50 mg/50mL 50 ML IV SCH (12:13)
[2020-09-10] MEDS: fentaNYL Drip 2500mCg/250mlNS 250 ML IV SCH (12:13)
[2020-09-10] MEDS ORDERED: chlordiazePOXIDE HCL 25 MG CAP PO PRN (19:15)
[2020-09-10] MEDS ORDERED: AMINO ACID INFUSION IN D10W 2,000 ML IV NR (20:00)
[2020-09-10] MEDS: GABAPENTIN 400 MG CAP PO SCH (22:27)
[2020-09-11] VITALS (101 sets, daily range): BP systolic 65–121; BP diastolic 30–80
[2020-09-11] MEDS: LEVALBUTEROL HCL 1.25 MG/3 ML NEB NEB PRN ×5 (02:22→22:07)
[2020-09-11] MEDS: ACETYLCYSTEINE 10 %(100MG/ML) SOL 4ML NEB SCH ×6 (02:23→22:06)
[2020-09-11] MEDS: fentaNYL Drip 2500mCg/250mlNS 250 ML IV SCH (02:35)
[2020-09-11] MEDS: ceFAZolin 1GM/50ML 50 ML IV SCH ×3 (03:31→18:46)
[2020-09-11 04:53] LABS: Basophils # (auto) 0.1 10 ^3/uL (0-0.2); Basophils % (auto) 1.8 % (0.0-2.0); Eosinophils # (auto) 0.2 10 ^3/uL (0-0.8); Eosinophils % (auto) 4.2 % (0.0-7.0); Hematocrit 24.8 % (36.0-46.0); Hemoglobin 8.2 g/dL (12.2-16.2); Lymphocytes # (auto) 1.2 10 ^3/uL (0.4-5.4); Lymphocytes % (auto) 23.3 % (10.0-50.0); Mean Corpuscular Hemoglobin 34.5 pg (28.0-32.0); Mean Corpuscular Hgb Conc. 33.2 g/dL (32.0-36.0); Monocytes # (auto) 0.3 10 ^3/uL (0-1.3); Monocytes % (auto) 5.5 % (0.0-12.0); Neutrophils # (auto) 3.4 10 ^3/uL (1.6-8.6); Neutrophils % (auto) 65.2 % (37.0-80.0); Nucleated Red Blood Cells % 0.3 %; Platelet Count (auto) 166 10^3/uL (140-450); Red Blood Cells 2.39 10^6/uL (4.0-5.20); Red Cell Distribution Width 19.8 % (11.8-14.3); White Blood Cell 5.2 10^3/uL (4.4-10.8)
[2020-09-11 05:11] LABS: Albumin 1.8 g/dL (3.4-5.0); Anion Gap 6 (5-15); Blood Urea Nitrogen 5 mg/dL (7-18); Calcium 8.9 mg/dL (8.5-10.1); Carbon Dioxide 20 mmol/L (21-32); Chloride 115 mmol/L (98-107); Glucose 87 mg/dL (74-106); Magnesium 1.4 mg/dL (1.6-2.6); Sodium 141 mmol/L (136-145)
[2020-09-11 05:18] LABS: Alanine Aminotransferase 43 U/L (13-56); Alkaline Phosphatase 191 U/L (45-117); Aspartate Aminotransferase 76 U/L (15-37); BUN/Creatinine Ratio 33.3; Bilirubin, Total 0.3 mg/dL (0.2-1.0); GFR African American 692 mL/min; GFR Non-African American 572 mL/min; Phosphorus 3.2 mg/dL (2.5-4.90); Pre Albumin 10.1 mg/dL (20.0-40.0); Total Protein 5.5 g/dL (6.4-8.2); Triglycerides 196 mg/dL (< 150)
[2020-09-11 05:19] LABS: Potassium 2.9 mmol/L (3.5-5.1)
[2020-09-11] MEDS: GABAPENTIN 400 MG CAP PO SCH ×3 (05:41→21:17)
[2020-09-11] MEDS: ACCU-CHEK COMFORT CURVE STRIP VI SCH ×3 (05:41→18:06)
[2020-09-11] MEDS: InsuLIN REG 1unit/0.01ml Soln (100units/ml) SC SCH ×3 (05:41→18:00)
[2020-09-11] MEDS: POTASSIUM CHL 20MEQ/100ML 100 ML IV SCH ×4 (06:31→12:46)
[2020-09-11] MEDS: ENOXAPARIN SOD 60 MG/0.6 ML SYRINGE SC SCH ×2 (10:21→21:17)
[2020-09-11] MEDS: THIAMINE 100mg/ml INJ (200mg/2ml VIAL) IV SCH (10:21)
[2020-09-11] MEDS: MAGNESIUM SULFATE 1GM/100ML 100 ML IV SCH ×3 (10:22→14:00)
[2020-09-11] MEDS: ESOMEPRAZOLE 40 MG/5ml VIAL INJ IV SCH ×2 (10:23→21:17)
[2020-09-11] MEDS: PHENYLEPHRINE INJ 80 MG in SODIUM CHL 0.9% 242 ML IV SCH (12:30)
[2020-09-11] MEDS: MIDAZOLAM DRIP 50 mg/50mL 50 ML IV SCH (12:52)
[2020-09-11] MEDS ORDERED: MAGNESIUM SULFATE 1GM/100ML 100 ML IV ONE (16:22)
[2020-09-11] MEDS ORDERED: AMINO ACID INFUSION IN D10W 1,000 ML IV NR (20:00)
[2020-09-11] MEDS: Jevity 1.2 Cal/Fiber 1 Liter GT SCH (21:17)
[2020-09-11] MEDS ORDERED: ACETAMINOPHEN 650 mg PER 20.3 mL UD PO PRN (22:15)
[2020-09-12] VITALS (99 sets, daily range): BP systolic 83–124; BP diastolic 34–93
[2020-09-12] MEDS: MIDAZOLAM DRIP 50 mg/50mL 50 ML IV SCH (00:20)
[2020-09-12] MEDS: ACCU-CHEK COMFORT CURVE STRIP VI SCH ×4 (01:24→18:14)
[2020-09-12] MEDS: LEVALBUTEROL HCL 1.25 MG/3 ML NEB NEB PRN ×4 (02:14→18:52)
[2020-09-12] MEDS: ACETYLCYSTEINE 10 %(100MG/ML) SOL 4ML NEB SCH ×4 (02:14→18:53)
[2020-09-12] MEDS: ceFAZolin 1GM/50ML 50 ML IV SCH ×2 (02:44→10:58)
[2020-09-12] MEDS: GABAPENTIN 400 MG CAP PO SCH ×3 (05:46→21:25)
[2020-09-12] MEDS: InsuLIN REG 1unit/0.01ml Soln (100units/ml) SC SCH ×4 (05:47→18:00)
[2020-09-12 05:55] LABS: Basophils # (auto) 0.1 10 ^3/uL (0-0.2); Eosinophils # (auto) 0.2 10 ^3/uL (0-0.8); Hematocrit 31.5 % (36.0-46.0); Hemoglobin 10.4 g/dL (12.2-16.2); Lymphocytes # (auto) 1.1 10 ^3/uL (0.4-5.4); Neutrophils # (auto) 3.4 10 ^3/uL (1.6-8.6); Nucleated Red Blood Cells % 0.1 %
[2020-09-12 05:58] LABS: Basophils % (auto) 1.4 % (0.0-2.0); Eosinophils % (auto) 3.3 % (0.0-7.0); Lymphocytes % (auto) 21.1 % (10.0-50.0); Mean Corpuscular Hemoglobin 34.4 pg (28.0-32.0); Mean Corpuscular Volume 104.2 fL (80.0-100.0); Monocytes # (auto) 0.4 10 ^3/uL (0-1.3); Monocytes % (auto) 7.3 % (0.0-12.0); Neutrophils % (auto) 66.9 % (37.0-80.0); Platelet Count (auto) 219 10^3/uL (140-450); Red Blood Cells 3.03 10^6/uL (4.0-5.20); Red Cell Distribution Width 18.9 % (11.8-14.3)
[2020-09-12 06:25] LABS: Potassium 3.6 mmol/L (3.5-5.1)
[2020-09-12 06:37] LABS: BUN/Creatinine Ratio 29.2; Bilirubin, Total 0.7 mg/dL (0.2-1.0); Calcium 8.8 mg/dL (8.5-10.1); Magnesium 1.9 mg/dL (1.6-2.6); Phosphorus 4.4 mg/dL (2.5-4.90); Total Protein 6.2 g/dL (6.4-8.2)
[2020-09-12] MEDS: ESOMEPRAZOLE 40 MG/5ml VIAL INJ IV SCH ×2 (09:53→21:25)
[2020-09-12] MEDS: ENOXAPARIN SOD 60 MG/0.6 ML SYRINGE SC SCH ×2 (09:53→21:25)
[2020-09-12] MEDS: THIAMINE 100mg/ml INJ (200mg/2ml VIAL) IV SCH (09:53)
[2020-09-12] MEDS: Jevity 1.2 Cal/Fiber 1 Liter GT SCH ×2 (10:00→21:24)
[2020-09-12] MEDS ORDERED: LINEZOLID 600MG/300ML 300 ML IV SCH (14:00)
[2020-09-12] MEDS: PHENYLEPHRINE INJ 80 MG in SODIUM CHL 0.9% 242 ML IV SCH (15:15)
[2020-09-12] MEDS ORDERED: VANCOMYCIN PER PHARMACY 0 MG IV SCH (16:00)
[2020-09-12] MEDS ORDERED: AMINO ACID INFUSION IN D10W 1,000 ML IV NR (20:00)
[2020-09-12] MEDS: VANCOMYCIN 1GM/250ML 250 ML IV SCH (20:04)
[2020-09-12] MEDS: MEROPENEM 1GM IVPB 100 ML IV SCH (21:24)
[2020-09-12] MEDS: fentaNYL Drip 2500mCg/250mlNS 250 ML IV SCH (23:42)
[2020-09-13] VITALS (94 sets, daily range): BP systolic 81–126; BP diastolic 23–77
[2020-09-13] MEDS: ACCU-CHEK COMFORT CURVE STRIP VI SCH ×4 (00:07→18:00)
[2020-09-13] MEDS: VANCOMYCIN 1GM/250ML 250 ML IV SCH ×3 (04:41→21:34)
[2020-09-13 05:42] LABS: Hemoglobin 10.1 g/dL (12.2-16.2); Mean Corpuscular Hemoglobin 34.5 pg (28.0-32.0)
[2020-09-13 05:45] LABS: Basophils # (auto) 0.1 10 ^3/uL (0-0.2); Basophils % (auto) 0.9 % (0.0-2.0); Eosinophils # (auto) 0.4 10 ^3/uL (0-0.8); Eosinophils % (auto) 4.6 % (0.0-7.0); Hematocrit 30.3 % (36.0-46.0); Lymphocytes # (auto) 0.9 10 ^3/uL (0.4-5.4); Lymphocytes % (auto) 11.5 % (10.0-50.0); Mean Corpuscular Hgb Conc. 33.2 g/dL (32.0-36.0); Mean Corpuscular Volume 103.8 fL (80.0-100.0); Monocytes # (auto) 0.3 10 ^3/uL (0-1.3); Monocytes % (auto) 4.3 % (0.0-12.0); Neutrophils # (auto) 6.3 10 ^3/uL (1.6-8.6); Neutrophils % (auto) 78.7 % (37.0-80.0); Platelet Count (auto) 330 10^3/uL (140-450); Red Blood Cells 2.92 10^6/uL (4.0-5.20); Red Cell Distribution Width 18.1 % (11.8-14.3)
[2020-09-13] MEDS: LEVALBUTEROL HCL 1.25 MG/3 ML NEB NEB PRN ×3 (05:50→22:27)
[2020-09-13] MEDS: ACETYLCYSTEINE 10 %(100MG/ML) SOL 4ML NEB SCH ×3 (05:51→22:27)
[2020-09-13 05:55] LABS: Potassium 3.6 mmol/L (3.5-5.1)
[2020-09-13] MEDS: InsuLIN REG 1unit/0.01ml Soln (100units/ml) SC SCH ×4 (06:00→18:00)
[2020-09-13] MEDS: Jevity 1.2 Cal/Fiber 1 Liter GT SCH ×3 (06:00→22:59)
[2020-09-13 06:02] LABS: Albumin 2.2 g/dL (3.4-5.0); Bilirubin, Total 0.5 mg/dL (0.2-1.0); Calcium 9.2 mg/dL (8.5-10.1); Magnesium 1.6 mg/dL (1.6-2.6); Phosphorus 3.1 mg/dL (2.5-4.90); Total Protein 6.7 g/dL (6.4-8.2)
[2020-09-13] MEDS: MEROPENEM 1GM IVPB 100 ML IV SCH ×3 (06:36→23:00)
[2020-09-13] MEDS: GABAPENTIN 400 MG CAP PO SCH ×3 (06:37→23:01)
[2020-09-13] MEDS: THIAMINE 100mg/ml INJ (200mg/2ml VIAL) IV SCH (11:03)
[2020-09-13] MEDS: ENOXAPARIN SOD 60 MG/0.6 ML SYRINGE SC SCH ×2 (11:03→23:00)
[2020-09-13] MEDS: ESOMEPRAZOLE 40 MG/5ml VIAL INJ IV SCH ×2 (11:03→23:00)
[2020-09-13] MEDS: fentaNYL Drip 2500mCg/250mlNS 250 ML IV SCH (11:45)
[2020-09-13] MEDS: MIDAZOLAM DRIP 50 mg/50mL 50 ML IV SCH (11:45)
[2020-09-13] MEDS ORDERED: MAGNESIUM SULFATE 1GM/100ML 100 ML IV ONE (12:45)
[2020-09-13] MEDS: PHENYLEPHRINE INJ 80 MG in SODIUM CHL 0.9% 242 ML IV SCH ×2 (15:15→22:00)
[2020-09-13] MEDS ORDERED: AMINO ACID INFUSION IN D10W 1,000 ML IV NR (20:00)
[2020-09-14] VITALS (74 sets, daily range): BP systolic 87–131; BP diastolic 48–85
[2020-09-14] MEDS: InsuLIN REG 1unit/0.01ml Soln (100units/ml) SC SCH ×4 (01:01→18:00)
[2020-09-14] MEDS: ACCU-CHEK COMFORT CURVE STRIP VI SCH ×4 (01:01→18:11)
[2020-09-14 04:02] LABS: Basophils # (auto) 0.1 10 ^3/uL (0-0.2); Basophils % (auto) 0.9 % (0.0-2.0); Eosinophils # (auto) 0.3 10 ^3/uL (0-0.8); Eosinophils % (auto) 4.5 % (0.0-7.0); Hematocrit 30.5 % (36.0-46.0); Hemoglobin 10.1 g/dL (12.2-16.2); Lymphocytes # (auto) 1.1 10 ^3/uL (0.4-5.4); Lymphocytes % (auto) 17.1 % (10.0-50.0); Mean Corpuscular Hemoglobin 33.7 pg (28.0-32.0); Mean Corpuscular Hgb Conc. 33.2 g/dL (32.0-36.0); Mean Corpuscular Volume 101.4 fL (80.0-100.0); Monocytes # (auto) 0.6 10 ^3/uL (0-1.3); Monocytes % (auto) 9.8 % (0.0-12.0); Neutrophils # (auto) 4.4 10 ^3/uL (1.6-8.6); Neutrophils % (auto) 67.7 % (37.0-80.0); Nucleated Red Blood Cells % 0.2 %; Platelet Count (auto) 405 10^3/uL (140-450); Red Blood Cells 3.01 10^6/uL (4.0-5.20); Red Cell Distribution Width 17.8 % (11.8-14.3); White Blood Cell 6.5 10^3/uL (4.4-10.8)
[2020-09-14] MEDS: VANCOMYCIN 1GM/250ML 250 ML IV SCH ×3 (04:03→20:17)
[2020-09-14 04:31] LABS: Albumin 2.4 g/dL (3.4-5.0); Bilirubin, Total 0.4 mg/dL (0.2-1.0); Calcium 9.3 mg/dL (8.5-10.1); Magnesium 1.9 mg/dL (1.6-2.6); Phosphorus 3.1 mg/dL (2.5-4.90)
[2020-09-14 04:39] LABS: Potassium 2.8 mmol/L (3.5-5.1)
[2020-09-14] MEDS: POTASSIUM CHL 20MEQ/100ML 100 ML IV SCH ×4 (05:00→23:45)
[2020-09-14] MEDS ORDERED: POTASSIUM CHL 20MEQ/100ML 100 ML IV ONE ×3 (05:33→23:45)
[2020-09-14] MEDS: GABAPENTIN 400 MG CAP PO SCH ×3 (05:51→21:51)
[2020-09-14] MEDS: MEROPENEM 1GM IVPB 100 ML IV SCH ×3 (05:51→21:46)
[2020-09-14] MEDS: Jevity 1.2 Cal/Fiber 1 Liter GT SCH ×3 (06:00→21:46)
[2020-09-14] MEDS: ACETYLCYSTEINE 10 %(100MG/ML) SOL 4ML NEB SCH ×3 (06:51→22:22)
[2020-09-14] MEDS: LEVALBUTEROL HCL 1.25 MG/3 ML NEB NEB PRN ×3 (06:51→22:22)
[2020-09-14] MEDS: ENOXAPARIN SOD 60 MG/0.6 ML SYRINGE SC SCH ×2 (09:34→21:51)
[2020-09-14] MEDS: THIAMINE 100mg/ml INJ (200mg/2ml VIAL) IV SCH (09:35)
[2020-09-14] MEDS: ESOMEPRAZOLE 40 MG/5ml VIAL INJ IV SCH ×2 (09:35→21:50)
[2020-09-14] MEDS ORDERED: FOLIC ACID 1 mg/0.2ml INJECTION INJ ONE (10:45)
[2020-09-14] MEDS ORDERED: THIAMINE 100mg/ml INJ (200mg/2ml VIAL) IV ONE (10:45)
[2020-09-14] MEDS ORDERED: MAGNESIUM SULFATE 1GM/100ML 100 ML IV ONE (10:45)
[2020-09-14] MEDS ORDERED: MVI in SODIUM CHLORIDE 0.9% 1,000 ML IVB ONE (10:45)
[2020-09-14] MEDS ORDERED: MAGNESIUM SULFATE 1GM/100ML 200 ML IV ONE (10:45)
[2020-09-14] MEDS ORDERED: FOLIC ACID 1 MG, MULTIPLE VITAMIN 10 ML, MAGNESIUM SULF SDV 50% 8 MEQ, THIAMINE INJ 100... INJ ONE ×5 (12:00)
[2020-09-14 13:34] LABS: INR 1.18 (0.9-1.15)
[2020-09-14] MEDS ORDERED: LIDOCAINE 1% (LOCAL ANESTH.) PF 5ml SDV ID ONE (18:15)
[2020-09-14] MEDS: PHENYLEPHRINE INJ 80 MG in SODIUM CHL 0.9% 242 ML IV SCH (20:00)
[2020-09-14] MEDS ORDERED: AMINO ACID INFUSION IN D10W 1,000 ML IV NR (20:00)
[2020-09-14] MEDS: fentaNYL Drip 2500mCg/250mlNS 250 ML IV SCH (20:15)
[2020-09-14] MEDS: MIDAZOLAM DRIP 50 mg/50mL 50 ML IV SCH (20:15)
[2020-09-14] MEDS: SODIUM CHLOR 0.9% PF (SALINE LOCK) 10ML VIAL/SYR IV SCH (21:51)
[2020-09-14 23:12] LABS: BUN/Creatinine Ratio 22.7; Magnesium 2.1 mg/dL (1.6-2.6); Potassium 3.1 mmol/L (3.5-5.1)
[2020-09-15] VITALS (38 sets, daily range): BP systolic 87–119; BP diastolic 47–73
[2020-09-15] MEDS: ACCU-CHEK COMFORT CURVE STRIP VI SCH ×2 (00:01→06:20)
[2020-09-15] MEDS: POTASSIUM CHL 20MEQ/100ML 100 ML IV SCH (01:45)
[2020-09-15] MEDS: VANCOMYCIN 1GM/250ML 250 ML IV SCH ×3 (04:00→20:01)
[2020-09-15 04:38] LABS: Basophils # (auto) 0.1 10 ^3/uL (0-0.2); Basophils % (auto) 1.2 % (0.0-2.0); Neutrophils # (auto) 2.4 10 ^3/uL (1.6-8.6); Neutrophils % (auto) 56.7 % (37.0-80.0); Platelet Count (auto) 396 10^3/uL (140-450); White Blood Cell 4.3 10^3/uL (4.4-10.8)
[2020-09-15 04:40] LABS: Eosinophils # (auto) 0.4 10 ^3/uL (0-0.8); Eosinophils % (auto) 8.5 % (0.0-7.0); Hematocrit 29.6 % (36.0-46.0); Hemoglobin 9.7 g/dL (12.2-16.2); Lymphocytes % (auto) 23.1 % (10.0-50.0); Mean Corpuscular Hemoglobin 33.7 pg (28.0-32.0); Mean Corpuscular Hgb Conc. 32.8 g/dL (32.0-36.0); Mean Corpuscular Volume 102.6 fL (80.0-100.0); Monocytes # (auto) 0.5 10 ^3/uL (0-1.3); Monocytes % (auto) 10.5 % (0.0-12.0); Red Blood Cells 2.88 10^6/uL (4.0-5.20); Red Cell Distribution Width 17.8 % (11.8-14.3)
[2020-09-15 04:50] LABS: Albumin 2.3 g/dL (3.4-5.0); Anion Gap 10 (5-15); Blood Urea Nitrogen 5 mg/dL (7-18); Calcium 8.8 mg/dL (8.5-10.1); Carbon Dioxide 19 mmol/L (21-32); Chloride 112 mmol/L (98-107); Glucose 117 mg/dL (74-106); Magnesium 1.9 mg/dL (1.6-2.6); Potassium 3.4 mmol/L (3.5-5.1); Sodium 141 mmol/L (136-145)
[2020-09-15 04:51] LABS: Alanine Aminotransferase 40 U/L (13-56); BUN/Creatinine Ratio 33.3; GFR African American 692 mL/min; GFR Non-African American 572 mL/min
[2020-09-15] MEDS: InsuLIN REG 1unit/0.01ml Soln (100units/ml) SC SCH ×2 (06:00)
[2020-09-15 06:09] LABS: Alkaline Phosphatase 171 U/L (45-117); Aspartate Aminotransferase 52 U/L (15-37); Bilirubin, Total 0.4 mg/dL (0.2-1.0); Total Protein 6.8 g/dL (6.4-8.2)
[2020-09-15] MEDS: MEROPENEM 1GM IVPB 100 ML IV SCH (06:19)
[2020-09-15] MEDS: Jevity 1.2 Cal/Fiber 1 Liter GT SCH ×3 (06:19→22:00)
[2020-09-15 06:21] LABS: Phosphorus 2.3 mg/dL (2.5-4.90)
[2020-09-15] MEDS: GABAPENTIN 400 MG CAP PO SCH ×3 (06:22→22:00)
[2020-09-15] MEDS: LEVALBUTEROL HCL 1.25 MG/3 ML NEB NEB PRN ×3 (07:17→22:41)
[2020-09-15] MEDS: ACETYLCYSTEINE 10 %(100MG/ML) SOL 4ML NEB SCH ×3 (07:18→22:42)
[2020-09-15] MEDS ORDERED: POTASSIUM CHL 20MEQ/100ML 100 ML IV ONE (09:15)
[2020-09-15] MEDS: THIAMINE 100mg/ml INJ (200mg/2ml VIAL) IV SCH (10:14)
[2020-09-15] MEDS: ENOXAPARIN SOD 60 MG/0.6 ML SYRINGE SC SCH ×2 (10:15→22:00)
[2020-09-15] MEDS: ESOMEPRAZOLE 40 MG/5ml VIAL INJ IV SCH ×2 (10:15→22:00)
[2020-09-15] MEDS: SODIUM CHLOR 0.9% PF (SALINE LOCK) 10ML VIAL/SYR IV SCH ×2 (10:16→22:00)
[2020-09-15] MEDS: fentaNYL Drip 2500mCg/250mlNS 250 ML IV SCH (11:30)
[2020-09-15] MEDS ORDERED: POTASSIUM PHOSP 26.4MEQ(18MMOL) IN NS 100 ML IV ONE (11:30)
[2020-09-15] MEDS: MIDAZOLAM DRIP 50 mg/50mL 50 ML IV SCH (11:30)
[2020-09-15] MEDS: cefTAZidime 1 GM in SODIUM CHL 0.9% 50 ML IV SCH ×2 (17:45→22:00)
[2020-09-15] MEDS ORDERED: AMINO ACID INFUSION IN D10W 2,000 ML IV NR (20:00)
[2020-09-16] VITALS (42 sets, daily range): BP systolic 87–113; BP diastolic 47–77
[2020-09-16 04:25] LABS: Eosinophils # (auto) 0.4 10 ^3/uL (0-0.8); Hemoglobin 9.6 g/dL (12.2-16.2); Lymphocytes # (auto) 1.2 10 ^3/uL (0.4-5.4); Monocytes # (auto) 0.7 10 ^3/uL (0-1.3); Nucleated Red Blood Cells % 0.1 %; Red Blood Cells 2.83 10^6/uL (4.0-5.20)
[2020-09-16 04:27] LABS: Basophils # (auto) 0.1 10 ^3/uL (0-0.2); Basophils % (auto) 1.3 % (0.0-2.0); Eosinophils % (auto) 6.8 % (0.0-7.0); Hematocrit 29.2 % (36.0-46.0); Lymphocytes % (auto) 22.7 % (10.0-50.0); Mean Corpuscular Hemoglobin 33.7 pg (28.0-32.0); Mean Corpuscular Hgb Conc. 32.7 g/dL (32.0-36.0); Mean Corpuscular Volume 103.1 fL (80.0-100.0); Monocytes % (auto) 13.3 % (0.0-12.0); Neutrophils % (auto) 55.9 % (37.0-80.0); Platelet Count (auto) 371 10^3/uL (140-450); Red Cell Distribution Width 17.4 % (11.8-14.3); White Blood Cell 5.3 10^3/uL (4.4-10.8)
[2020-09-16] MEDS: VANCOMYCIN 1GM/250ML 250 ML IV SCH ×3 (04:30→20:00)
[2020-09-16 04:50] LABS: Potassium 3.4 mmol/L (3.5-5.1)
[2020-09-16 04:58] LABS: Albumin 2.5 g/dL (3.4-5.0); BUN/Creatinine Ratio 36.4; Bilirubin, Total 0.4 mg/dL (0.2-1.0); Calcium 9.3 mg/dL (8.5-10.1); Magnesium 1.8 mg/dL (1.6-2.6); Phosphorus 2.9 mg/dL (2.5-4.90); Total Protein 6.7 g/dL (6.4-8.2)
[2020-09-16] MEDS: Jevity 1.2 Cal/Fiber 1 Liter GT SCH (05:59)
[2020-09-16] MEDS: GABAPENTIN 400 MG CAP PO SCH ×3 (06:00→22:53)
[2020-09-16] MEDS: cefTAZidime 1 GM in SODIUM CHL 0.9% 50 ML IV SCH ×3 (06:00→22:52)
[2020-09-16] MEDS: LEVALBUTEROL HCL 1.25 MG/3 ML NEB NEB PRN (07:16)
[2020-09-16] MEDS: ACETYLCYSTEINE 10 %(100MG/ML) SOL 4ML NEB SCH (07:17)
[2020-09-16] MEDS ORDERED: POTASSIUM CHL 20MEQ/100ML 100 ML IV ONE (10:15)
[2020-09-16] MEDS: ESOMEPRAZOLE 40 MG/5ml VIAL INJ IV SCH ×2 (10:23→22:52)
[2020-09-16] MEDS: THIAMINE 100mg/ml INJ (200mg/2ml VIAL) IV SCH (10:23)
[2020-09-16] MEDS: SODIUM CHLOR 0.9% PF (SALINE LOCK) 10ML VIAL/SYR IV SCH ×2 (10:24→22:53)
[2020-09-16] MEDS: ENOXAPARIN SOD 60 MG/0.6 ML SYRINGE SC SCH ×2 (10:24→22:53)
[2020-09-17] VITALS (21 sets, daily range): BP systolic 98–120; BP diastolic 61–80
[2020-09-17] MEDS: VANCOMYCIN 1GM/250ML 250 ML IV SCH (03:55)
[2020-09-17 04:06] LABS: Basophils # (auto) 0.1 10 ^3/uL (0-0.2); Basophils % (auto) 1.5 % (0.0-2.0); Eosinophils # (auto) 0.4 10 ^3/uL (0-0.8); Eosinophils % (auto) 9.1 % (0.0-7.0); Hematocrit 27.2 % (36.0-46.0); Hemoglobin 8.9 g/dL (12.2-16.2); Lymphocytes # (auto) 1.3 10 ^3/uL (0.4-5.4); Lymphocytes % (auto) 28.8 % (10.0-50.0); Mean Corpuscular Hemoglobin 33.3 pg (28.0-32.0); Mean Corpuscular Hgb Conc. 32.8 g/dL (32.0-36.0); Mean Corpuscular Volume 101.5 fL (80.0-100.0); Monocytes # (auto) 0.5 10 ^3/uL (0-1.3); Monocytes % (auto) 11.6 % (0.0-12.0); Neutrophils # (auto) 2.2 10 ^3/uL (1.6-8.6); Nucleated Red Blood Cells % 0.1 %; Platelet Count (auto) 420 10^3/uL (140-450); Red Blood Cells 2.68 10^6/uL (4.0-5.20); Red Cell Distribution Width 17.3 % (11.8-14.3); White Blood Cell 4.6 10^3/uL (4.4-10.8)
[2020-09-17 04:36] LABS: Anion Gap 9 (5-15); Blood Urea Nitrogen 6 mg/dL (7-18); Calcium 9.1 mg/dL (8.5-10.1); Carbon Dioxide 21 mmol/L (21-32); Chloride 112 mmol/L (98-107); GFR African American 692 mL/min; GFR Non-African American 572 mL/min; Glucose 97 mg/dL (74-106); Magnesium 1.6 mg/dL (1.6-2.6); Sodium 142 mmol/L (136-145)
[2020-09-17 04:49] LABS: Potassium 2.9 mmol/L (3.5-5.1)
[2020-09-17] MEDS ORDERED: POTASSIUM CHL 20MEQ/100ML 100 ML IV ONE (05:05)
[2020-09-17] MEDS ORDERED: MAGNESIUM SULFATE 1GM/100ML 100 ML IV ONE ×2 (05:15→12:00)
[2020-09-17] MEDS: GABAPENTIN 400 MG CAP PO SCH ×3 (06:00→22:00)
[2020-09-17] MEDS: cefTAZidime 1 GM in SODIUM CHL 0.9% 50 ML IV SCH ×3 (06:49→22:01)
[2020-09-17] MEDS: POTASSIUM CHL 20MEQ/100ML 100 ML IV SCH ×4 (07:00→14:56)
[2020-09-17] MEDS: SODIUM CHLOR 0.9% PF (SALINE LOCK) 10ML VIAL/SYR IV SCH ×2 (09:57→22:01)
[2020-09-17] MEDS: ENOXAPARIN SOD 60 MG/0.6 ML SYRINGE SC SCH ×2 (09:57→22:01)
[2020-09-17] MEDS: THIAMINE 100mg/ml INJ (200mg/2ml VIAL) IV SCH (09:58)
[2020-09-17] MEDS: ESOMEPRAZOLE 40 MG/5ml VIAL INJ IV SCH ×2 (09:58→22:36)
[2020-09-17] MEDS ORDERED: LORazepam 2MG/ML-1ML VIAL IV ONE (11:00)
[2020-09-18 05:00] VITALS: BP_SYST 112; BP_SYST 124; BP_DIAS 68; BP_DIAS 74
[2020-09-18] MEDS: cefTAZidime 1 GM in SODIUM CHL 0.9% 50 ML IV SCH ×3 (06:14→21:32)
[2020-09-18] MEDS: GABAPENTIN 400 MG CAP PO SCH ×3 (06:14→21:33)
[2020-09-18 07:14] LABS: Basophils # (auto) 0.1 10 ^3/uL (0-0.2); Basophils % (auto) 1.3 % (0.0-2.0); Eosinophils # (auto) 0.3 10 ^3/uL (0-0.8); Eosinophils % (auto) 6.1 % (0.0-7.0); Hematocrit 29.7 % (36.0-46.0); Hemoglobin 9.7 g/dL (12.2-16.2); Lymphocytes # (auto) 1.4 10 ^3/uL (0.4-5.4); Mean Corpuscular Hemoglobin 32.6 pg (28.0-32.0); Mean Corpuscular Hgb Conc. 32.5 g/dL (32.0-36.0); Mean Corpuscular Volume 100.4 fL (80.0-100.0); Monocytes # (auto) 0.6 10 ^3/uL (0-1.3); Monocytes % (auto) 11.4 % (0.0-12.0); Neutrophils # (auto) 2.6 10 ^3/uL (1.6-8.6); Neutrophils % (auto) 52.2 % (37.0-80.0); Nucleated Red Blood Cells % 0.2 %; Platelet Count (auto) 472 10^3/uL (140-450); Red Blood Cells 2.96 10^6/uL (4.0-5.20); Red Cell Distribution Width 17.5 % (11.8-14.3); White Blood Cell 4.9 10^3/uL (4.4-10.8)
[2020-09-18 07:30] LABS: BUN/Creatinine Ratio 31.3; Calcium 9.3 mg/dL (8.5-10.1); Potassium 3.4 mmol/L (3.5-5.1)
[2020-09-18 09:00] VITALS: BP 108/69
[2020-09-18] MEDS: THIAMINE 100mg/ml INJ (200mg/2ml VIAL) IV SCH (09:25)
[2020-09-18] MEDS: SODIUM CHLOR 0.9% PF (SALINE LOCK) 10ML VIAL/SYR IV SCH ×2 (09:25→21:32)
[2020-09-18] MEDS: ENOXAPARIN SOD 60 MG/0.6 ML SYRINGE SC SCH (09:25)
[2020-09-18] MEDS ORDERED: APIX5TAB PO (10:48)
[2020-09-18] MEDS: ESOMEPRAZOLE 40 MG/5ml VIAL INJ IV SCH ×2 (11:42→21:32)
[2020-09-18 13:00] VITALS: BP 103/69
[2020-09-18 17:00] VITALS: BP 111/66
[2020-09-18] MEDS: APIXABAN 5 MG TAB PO SCH (21:32)
[2020-09-18 21:50] VITALS: BP 111/68
[2020-09-19 05:00] VITALS: BP 96/58
[2020-09-19] MEDS: cefTAZidime 1 GM in SODIUM CHL 0.9% 50 ML IV SCH ×3 (05:45→22:04)
[2020-09-19] MEDS: GABAPENTIN 400 MG CAP PO SCH ×3 (05:46→22:06)
[2020-09-19 09:08] VITALS: BP 111/62
[2020-09-19] MEDS: THIAMINE 100mg/ml INJ (200mg/2ml VIAL) IV SCH (11:16)
[2020-09-19] MEDS: ESOMEPRAZOLE 40 MG/5ml VIAL INJ IV SCH ×2 (11:16→22:05)
[2020-09-19] MEDS: APIXABAN 5 MG TAB PO SCH ×2 (11:17→22:06)
[2020-09-19] MEDS: SODIUM CHLOR 0.9% PF (SALINE LOCK) 10ML VIAL/SYR IV SCH ×2 (11:17→22:06)
[2020-09-19 13:20] VITALS: BP 109/74
[2020-09-19 17:02] VITALS: BP 109/74
[2020-09-19 21:31] VITALS: BP 107/77
[2020-09-20 04:37] VITALS: BP 109/71
[2020-09-20] MEDS: GABAPENTIN 400 MG CAP PO SCH ×3 (05:30→21:40)
[2020-09-20] MEDS: cefTAZidime 1 GM in SODIUM CHL 0.9% 50 ML IV SCH ×3 (05:30→21:39)
[2020-09-20 09:03] VITALS: BP 100/61
[2020-09-20] MEDS: APIXABAN 5 MG TAB PO SCH ×2 (09:23→21:40)
[2020-09-20] MEDS: THIAMINE 100mg/ml INJ (200mg/2ml VIAL) IV SCH (09:26)
[2020-09-20] MEDS: ESOMEPRAZOLE 40 MG/5ml VIAL INJ IV SCH ×2 (09:31→21:40)
[2020-09-20] MEDS: SODIUM CHLOR 0.9% PF (SALINE LOCK) 10ML VIAL/SYR IV SCH ×2 (10:31→21:40)
[2020-09-20 11:53] LABS: Basophils # (auto) 0.1 10 ^3/uL (0-0.2); Basophils % (auto) 0.8 % (0.0-2.0); Eosinophils # (auto) 0.2 10 ^3/uL (0-0.8); Hematocrit 32.9 % (36.0-46.0); Hemoglobin 10.9 g/dL (12.2-16.2); Lymphocytes # (auto) 1.3 10 ^3/uL (0.4-5.4); Lymphocytes % (auto) 16.1 % (10.0-50.0); Mean Corpuscular Hemoglobin 32.9 pg (28.0-32.0); Mean Corpuscular Volume 99.7 fL (80.0-100.0); Monocytes # (auto) 0.8 10 ^3/uL (0-1.3); Monocytes % (auto) 10.2 % (0.0-12.0); Neutrophils # (auto) 5.9 10 ^3/uL (1.6-8.6); Neutrophils % (auto) 70.9 % (37.0-80.0); Nucleated Red Blood Cells % 0.1 %; Platelet Count (auto) 458 10^3/uL (140-450); Red Cell Distribution Width 16.8 % (11.8-14.3); White Blood Cell 8.3 10^3/uL (4.4-10.8)
[2020-09-20 12:16] LABS: BUN/Creatinine Ratio 27.3; Calcium 9.9 mg/dL (8.5-10.1); Potassium 3.4 mmol/L (3.5-5.1)
[2020-09-20 12:36] VITALS: BP 109/60
[2020-09-20 17:01] VITALS: BP 123/70
[2020-09-20 22:00] VITALS: BP 119/74
[2020-09-21 05:00] VITALS: BP 115/76
[2020-09-21] MEDS: GABAPENTIN 400 MG CAP PO SCH ×3 (05:54→22:19)
[2020-09-21] MEDS: cefTAZidime 1 GM in SODIUM CHL 0.9% 50 ML IV SCH ×3 (05:54→22:17)
[2020-09-21 07:42] LABS: Chloride 105 mmol/L (98-107)
[2020-09-21 07:47] LABS: Blood Urea Nitrogen 6 mg/dL (7-18); Calcium 9.1 mg/dL (8.5-10.1); Carbon Dioxide 21 mmol/L (21-32); GFR African American 692 mL/min; GFR Non-African American 572 mL/min; Glucose 100 mg/dL (74-106)
[2020-09-21 07:48] LABS: Potassium 2.8 mmol/L (3.5-5.1)
[2020-09-21 08:14] LABS: Anion Gap 11 (5-15); Sodium 137 mmol/L (136-145)
[2020-09-21 08:30] VITALS: BP 115/75
[2020-09-21] MEDS: ESOMEPRAZOLE 40 MG/5ml VIAL INJ IV SCH ×2 (09:26→22:17)
[2020-09-21] MEDS: THIAMINE 100mg/ml INJ (200mg/2ml VIAL) IV SCH (09:26)
[2020-09-21] MEDS: APIXABAN 5 MG TAB PO SCH ×2 (09:27→22:18)
[2020-09-21] MEDS: ACETAMINOPHEN 500 MG TAB PO PRN (09:27)
[2020-09-21] MEDS: SODIUM CHLOR 0.9% PF (SALINE LOCK) 10ML VIAL/SYR IV SCH ×2 (09:27→22:10)
[2020-09-21] MEDS ORDERED: POTASSIUM CHL 20 Meq TABLET PO ONE (10:15)
[2020-09-21] MEDS: POTASSIUM CHL 20MEQ/100ML 100 ML IV SCH ×3 (11:00→14:29)
[2020-09-21 13:00] VITALS: BP_SYST 11; BP_SYST 117; BP_DIAS 70
[2020-09-21 17:04] VITALS: BP 134/71
[2020-09-21 22:00] VITALS: BP 106/73
[2020-09-22 05:00] VITALS: BP 132/58
[2020-09-22] MEDS: cefTAZidime 1 GM in SODIUM CHL 0.9% 50 ML IV SCH (05:30)
[2020-09-22] MEDS: GABAPENTIN 400 MG CAP PO SCH ×2 (05:47→06:02)
[2020-09-22 07:18] LABS: Anion Gap 9 (5-15); Blood Urea Nitrogen 3 mg/dL (7-18); Calcium 9.4 mg/dL (8.5-10.1); Carbon Dioxide 20 mmol/L (21-32); Chloride 109 mmol/L (98-107); Glucose 86 mg/dL (74-106); Potassium 3.5 mmol/L (3.5-5.1); Sodium 138 mmol/L (136-145)
[2020-09-22 07:21] LABS: GFR African American 692 mL/min; GFR Non-African American 572 mL/min
[2020-09-22 07:47] LABS: Basophils # (auto) 0 10 ^3/uL (0-0.2); Basophils % (auto) 0.9 % (0.0-2.0); Eosinophils # (auto) 0.2 10 ^3/uL (0-0.8); Eosinophils % (auto) 3.8 % (0.0-7.0); Hematocrit 30.7 % (36.0-46.0); Hemoglobin 10.1 g/dL (12.2-16.2); Lymphocytes # (auto) 1.2 10 ^3/uL (0.4-5.4); Mean Corpuscular Hemoglobin 32.7 pg (28.0-32.0); Mean Corpuscular Volume 99.3 fL (80.0-100.0); Monocytes # (auto) 0.6 10 ^3/uL (0-1.3); Monocytes % (auto) 11.6 % (0.0-12.0); Neutrophils # (auto) 3.2 10 ^3/uL (1.6-8.6); Neutrophils % (auto) 60.7 % (37.0-80.0); Platelet Count (auto) 333 10^3/uL (140-450); Red Blood Cells 3.09 10^6/uL (4.0-5.20); Red Cell Distribution Width 16.4 % (11.8-14.3); White Blood Cell 5.3 10^3/uL (4.4-10.8)
[2020-09-22 08:50] VITALS: BP 112/70
[2020-09-22] MEDS: SODIUM CHLOR 0.9% PF (SALINE LOCK) 10ML VIAL/SYR IV SCH (09:22)
[2020-09-22] MEDS: ESOMEPRAZOLE 40 MG/5ml VIAL INJ IV SCH (09:22)
[2020-09-22] MEDS: APIXABAN 5 MG TAB PO SCH (09:22)
[2020-09-22] MEDS: THIAMINE 100mg/ml INJ (200mg/2ml VIAL) IV SCH (09:22)
[2020-09-22] MEDS: ACETAMINOPHEN 500 MG TAB PO PRN (09:23)
[2020-09-22 12:28] VITALS: BP 112/67
[2020-09-25] MEDS ORDERED: APIXABAN 5 MG TAB PO SCH (22:00)
== END 2020-09-22 14:30 | DRG 720 ==
LOC: EDUNIT# 16:56 → ER 16:56 → TELE 16:57 → ICU WEST 08-28 12:42 → TELE-CENTR 09-17 21:30
PROVIDERS: ADMIT Nurse Practitioner; ATTEND Internal Medicine Pulmonary Disease
PROC: 4A143B0 Monitoring of Venous Pressure, Central, Percutaneous Approach (ICD-10-PCS; 2020-08-28)
PROC: 02H633Z Insertion of Infusion Device into Right Atrium, Percutaneous Approach (ICD-10-PCS; 2020-08-28)
PROC: 5A1D70Z Performance of Urinary Filtration, Intermittent, Less than 6 Hours Per Day (ICD-10-PCS; 2020-08-28)
PROC: 5A1955Z Respiratory Ventilation, Greater than 96 Consecutive Hours (ICD-10-PCS; principal; 2020-09-02)
PROC: 0BH17EZ Insertion of Endotracheal Airway into Trachea, Via Natural or Artificial Opening (ICD-10-PCS; 2020-09-02)
PROC: 30233N1 Transfusion of Nonautologous Red Blood Cells into Peripheral Vein, Percutaneous Approach (ICD-10-PCS; 2020-09-07)
PROC: 0BP1XDZ Removal of Intraluminal Device from Trachea, External Approach (ICD-10-PCS; 2020-09-13)
PROC: 02HV33Z Insertion of Infusion Device into Superior Vena Cava, Percutaneous Approach (ICD-10-PCS; 2020-09-15)
DX: A41.9 Sepsis, unspecified organism (principal); U07.1 COVID-19; I26.99 Other pulmonary embolism without acute cor pulmonale; J96.01 Acute respiratory failure with hypoxia; J69.0 Pneumonitis due to inhalation of food and vomit; R65.21 Severe sepsis with septic shock; G92 Toxic encephalopathy; D62 Acute posthemorrhagic anemia; E83.39 Other disorders of phosphorus metabolism; T50.901A Poisoning by unspecified drugs, medicaments and biological substances, accidental (unintentional), initial encounter; I47.2 Ventricular tachycardia; E88.09 Other disorders of plasma-protein metabolism, not elsewhere classified; R56.9 Unspecified convulsions; M62.82 Rhabdomyolysis; E87.6 Hypokalemia; F10.239 Alcohol dependence with withdrawal, unspecified; E87.0 Hyperosmolality and hypernatremia; K72.90 Hepatic failure, unspecified without coma; N17.9 Acute kidney failure, unspecified; E79.0 Hyperuricemia without signs of inflammatory arthritis and tophaceous disease; G89.4 Chronic pain syndrome; N12 Tubulo-interstitial nephritis, not specified as acute or chronic; D64.9 Anemia, unspecified; K70.30 Alcoholic cirrhosis of liver without ascites; N39.0 Urinary tract infection, site not specified; K56.41 Fecal impaction; G91.2 (Idiopathic) normal pressure hydrocephalus; G31.9 Degenerative disease of nervous system, unspecified; K76.0 Fatty (change of) liver, not elsewhere classified; B96.5 Pseudomonas (aeruginosa) (mallei) (pseudomallei) as the cause of diseases classified elsewhere; Z79.01 Long term (current) use of anticoagulants; Z75.1 Person awaiting admission to adequate facility elsewhere; Z79.899 Other long term (current) drug therapy; Z80.3 Family history of malignant neoplasm of breast; Z80.7 Family history of other malignant neoplasms of lymphoid, hematopoietic and related tissues; Z83.3 Family history of diabetes mellitus; Z86.73 Personal history of transient ischemic attack (TIA), and cerebral infarction without residual deficits; Z99.2 Dependence on renal dialysis; Y92.89 Other specified places as the place of occurrence of the external cause
CPT/HCPCS: 36415; 36569; 36600; 70450; 70486; 70551; 71045; 71250; 71275; 72125; 73502; 73660; 74176; 76604; 76775; 80048; 80053; 80074; 80202; 80307; 80320; 80329; 81001; 82040; 82140; 82270; 82550; 82570; 82607; 82746; 82805; 82962; 83036; 83540; 83550; 83605; 83735; 83880; 83930; 83970; 84100; 84132; 84156; 84295; 84300; 84439; 84443; 84478; 84484; 84550; 84702; 85007; 85014; 85018; 85025; 85027; 85379; 85610; 85730; 86850; 86900; 86901; 86920; 87040; 87070; 87077; 87081; 87086; 87088; 87186; 87205; 87426; 90935; 92610; 93005; 93970; 94002; 94003; 94640; 94668; 95819; 96361; 96365; 96366; 96367; 96368; 97110; 97530; 99291; C9113; G0378; J0690; J1642; J1815; J2185; J2250; J2543; J3480; J7060; P9047

== ENCOUNTER 2020-11-24 12:44 | Emergency (ER) | payer OTHER ==
[~2020-11-24] VITALS: Ht 162.6 cm; Wt 59.4 kg
[~2020-11-24 12:44] MED LIST: APIX5TAB PO
[2020-11-24 12:45] VITALS: BP 138/88
[2020-11-24] MEDS ORDERED: KETOROLAC TROMETH 60MG/2ML VIAL IM ONE (15:45)
[2020-11-24] MEDS ORDERED: diphenhdrAMINE HCL 50 MG/1 ML VL IM ONE (15:45)
[2020-11-24 16:08] LABS: Urine Bacteria NONE SEEN /hpf (None Seen); Urine Blood Negative /uL (Negative); Urine Specific Gravity 1.008 (1.001-1.035); Urine WBC 3 /hpf (0 - 5)
[2020-11-24 16:13] LABS: Amphetamine Screen, Urine NEGATIVE (NEGATIVE); Barbiturate Scree,Urine NEGATIVE (NEGATIVE); Benzodiazephine Screen, Urine NEGATIVE (NEGATIVE); Cocaine Screen, Urine NEGATIVE (NEGATIVE); Opiate Scree,Urine NEGATIVE (NEGATIVE); Phencyclidine Screen, Urine NEGATIVE (NEGATIVE)
[2020-11-24 16:20] LABS: Cannabinoid Screen, Urine POSITIVE (NEGATIVE)
[2020-11-24 16:21] LABS: Alcohol, Urine < 3.0 mg/dL (0-10)
== END 2020-11-24 16:27 | disposition home or self-care (01) ==
LOC: ER 12:44
DX: G89.29 Other chronic pain (principal); M54.5 Low back pain; Z86.73 Personal history of transient ischemic attack (TIA), and cerebral infarction without residual deficits; Z79.899 Other long term (current) drug therapy
CPT/HCPCS: 80307; 81001; 81025; 96372; 99284; J1200; J1885